=== PATIENT | male | born 1950 | race Caucasian/White ===

== ENCOUNTER 2018-03-01 19:18 | Inpatient (IN) | payer OTHER ==
[2018-03-01] MEDS ORDERED: Albuterol-Ipratrop 3 mg / 0.5 (3 ml) UD INH STA (20:22)
[2018-03-01 20:37] LABS: BASO # 0.1 K/uL (0.0-0.2); BASO % 0.3 % (0.0-2.0); LYMPH # 1.6 K/uL (1.0-4.3); LYMPH % 8.1 % (20.0-40.0); MEAN CELL VOLUME 80.8 fL (80.0-94.0); MEAN CORPUSCULAR HEMOGLOBIN 27.6 pg (27.0-31.0); MEAN CORPUSCULAR HGB CONC 34.2 g/dL (33.0-37.0); MEAN PLATELET VOLUME 8.3 fL (7.2-11.7); MONO # 1.1 K/uL (0.0-0.8); MONO % 5.9 % (0.0-10.0); NEUT # 16.7 K/uL (1.8-7.0); NEUT % 85.7 % (50.0-75.0); NRBC % 0.1 % (0.0-2.0); PLATELET COUNT 233 K/uL (130-400); RBC 3.96 Mil/uL (4.40-5.90); RED CELL DISTRIBUTION WIDTH 19.2 % (11.5-14.5); WHITE BLOOD COUNT 19.4 K/uL (4.8-10.8)
[2018-03-01 20:50] LABS: ALB/GLOB RATIO 1.3 (1.0-2.1); ALBUMIN 3.4 g/dL (3.5-5.0); ALT/SGPT 34 U/L (21-72); AST/SGOT 23 U/L (17-59); BLOOD UREA NITROGEN 20 mg/dL (9-20); CALCIUM 9.3 mg/dl (8.6-10.4); GFR NON-AFRICAN AMERICAN > 60
[2018-03-01] MEDS: Magnesium Sulfate 1 gm in D5W 1 GM/100 ML BAG IVPB SCH ×2 (20:53→21:19)
[2018-03-01] MEDS ORDERED: Albuterol-Ipratrop 3 mg / 0.5 (3 ml) UD ONE (20:54)
[2018-03-01] MEDS ORDERED: Magnesium Sulfate 1 gm in D5W 1 GM/100 ML BAG IVPB ONE ×2 (20:54→21:05)
[2018-03-01 20:58] LABS: B-TYPE NATRIURETIC PEPTIDE 1640 pg/mL (0-900)
[2018-03-01 22:03] LABS: ANISOCYTOSIS SLIGHT; LYMPHOCYTE 9 % (20-40); MICROCYTOSIS SLIGHT; MONOCYTE 6 % (0-10); NEUTROPHIL 85 % (50-75); PLATELET ESTIMATE NORMAL (NORMAL); POIKILOCYTOSIS SLIGHT; TOTAL CELLS COUNTED 100
[2018-03-01] MEDS ORDERED: Azithromycin 500 MG in Sodium Chloride 0.9% 250 ML IVPB STA (22:04)
--- NOTE | 2018-03-01 22:11 | C.PDOC ---
History Of Present Illness 67 year old male presents to the ER with a complaint of COPD symptoms and productive cough for the past several days associated with subjective fever. Patient states the sputum in greenish/brown in color. Patient was given 2 duonebs and solumedrol [employer] by EMS. Denies chest pain or recent travel. Chief Complaint (Nursing): Shortness Of Breath History Per: Patient History/Exam Limitations: no limitations Onset/Duration Of Symptoms: Days Current Symptoms Are (Timing): Still Present Initiating Event: Other (Not known) Current Respiratory Medications: See Home Med List Associated Symptoms: Fever (Subjective), Productive Cough, Other (COPD symptoms). denies: Chills, Chest Pain Recent travel outside of the [place]: No Past Medical History Reviewed: Historical Data, Nursing Documentation, Vital Signs Vital Signs: Last Vital Signs Temp 98.8 F 03/01/18 19:26 Pulse 100 H 03/01/18 19:26 Resp 18 03/01/18 19:26 BP 136/72 03/01/18 19:26 Pulse Ox 96 03/01/18 19:26 - Medical History PMH: Asthma, COPD Family History: States: Unknown Family Hx - Social History Hx Alcohol Use: No Hx Substance Use: No - Immunization History Hx Tetanus Toxoid Vaccination: No Hx Influenza Vaccination: No Hx Pneumococcal Vaccination: No Review Of Systems Constitutional: Positive for: Fever (Subjective) ENT: Negative for: Nose Discharge, Nose Congestion, Throat Pain Cardiovascular: Negative for: Chest Pain, Palpitations Respiratory: Positive for: Cough, Shortness of Breath, Sputum, Wheezing Gastrointestinal: Negative for: Nausea, Vomiting Genitourinary: Negative for: Dysuria, Hematuria Skin: Negative for: Rash Neurological: Negative for: Weakness, Numbness Physical Exam - Physical Exam Appears: Non-toxic, Other (Mild distress) Skin: Normal Color, Warm, Dry Head: Atraumatic, Normacephalic Eye(s): bilateral: Normal Inspection Nose: Normal Oral Mucosa: Moist Throat: Normal, No Erythema, No Exudate Neck: Normal, Supple Chest: Symmetrical, No Tenderness Cardiovascular: Rhythm Regular Respiratory: No Rales, Rhonchi (Left greater than right), Wheezing (Bilateral) Gastrointestinal/Abdominal: Soft, No Tenderness Back: No CVA Tenderness Extremity: Pedal Edema (Trace) Neurological/Psych: Oriented x3, Normal Speech ED Course And Treatment - Laboratory Results Result Diagrams: 03/01/18 20:32 03/01/18 20:32 O2 Sat by Pulse Oximetry: 96 (Room air) Pulse Ox Interpretation: Normal Progress Note: CXR and lab work ordered and reviewed. Patient admitted under hospitalist service. Disposition - Disposition Disposition: HOSPITALIZED Disposition Time: 22:00 Condition: FAIR - Clinical Impression Clinical Impression: Chr obstructive pulmonary disease w/ acute lower respiratory infxn - Scribe Statement The provider has reviewed the documentation as recorded by the Scribcarl Grace All medical record entries made by the Андрейibcarl were at my direction and personally dictated by me. I have reviewed the chart and agree that the record accurately reflects my personal performance of the history, physical exam, medical decision making, and the department course for this patient. I have also personally directed, reviewed, and agree with the discharge instructions and disposition.
[2018-03-01] MEDS ORDERED: Azithromycin 500mg/250ML NS 500 MG/250 ML BAG IVPB ONE (22:24)
--- NOTE | 2018-03-01 22:41 | CP.PCM.HP ---
<Belen Thakur - Last Filed: 03/01/18 23:46> History of Present Illness - History of Present Illness History of Present Illness: History and Physical - Hospitalist Service CC: Shortness of breath and chest pain x 1 day HPI: Patient is a 67 year old male with past medical history of COPD/asthma, HTN, PE s/p IVC filter, psoriasis, non-compliance presents to the Emergency Dept with shortness of breath and chest pain that started today. Patient was recently admitted to [facility] with the same complaint and has multiple admissions to the hospital. He was discharged from [facility] on 02/27/18. He was discharged with medrol dose mt and mucinex. He reports that he did not take these medications. Patient states that he walking outside when he started experiencing shortness of breath and left sided chest pain. Patient states that he did not have his albuterol inhaler with him so he was unable to use it. EMS was called and brought him to the hospital. He admits to having productive cough for the past two days. Sputum is brown/green in color. He also admits to having chills and sweats for the past two days as well. He denies fevers, nausea/vomiting, headaches, dizziness, palpitations, abdominal pain, urinary symptoms, changes in bowel habits. ED course: Magnesium sulfate 1mg IVPB x 2, Azithromycin 500mg IVPB, Rocephin 1gm IVPB, Duonebs Allergies: NKDA Medications: Albuterol inhaler Medical History: COPD, asthma, Impaired glucose tolerance, Chronic back pain Surgical History: Hernia repair 01/2018, IVC filter Family History: Father - ; Mother - arthritis, Sister - Diabetes Mellitus Social History: former smoker (30 pack years, quit 1 yr ago), former alcohol abuse (last drink in 02/2017), denies drug use; is homeless, sometimes sleeps in his friends house Present on Admission - Present on Admission Any Indicators Present on Admission: Yes Past Patient History - Infectious Disease Hx of Infectious Diseases: None - Past Social History Smoking Status: Former Smoker - PULMONARY Hx Asthma: Yes Hx Chronic Obstructive Pulmonary Disease (COPD): Yes - PSYCHIATRIC Hx Substance Use: No Meds Allergies/Adverse Reactions: Allergies Allergy/AdvReac Type Severity Reaction Status Date / Time No Known Allergies Allergy Unverified 03/01/18 20:21 Physical Exam - Constitutional Appears: Well, No Acute Distress - Head Exam Head Exam: ATRAUMATIC, NORMAL INSPECTION, NORMOCEPHALIC - Eye Exam Eye Exam: EOMI, Normal appearance Pupil Exam: NORMAL ACCOMODATION - ENT Exam ENT Exam: Mucous Membranes Moist - Respiratory Exam Respiratory Exam: Wheezes (Expiratory), NORMAL BREATHING PATTERN. absent: Clear to Auscultation Bilateral, Rales, Rhonchi - Cardiovascular Exam Cardiovascular Exam: REGULAR RHYTHM, +S1, +S2. absent: Systolic Murmur - GI/Abdominal Exam GI & Abdominal Exam: Normal Bowel Sounds, Soft. absent: Rebound, Rigid, Tenderness - Extremities Exam Extremities exam: Positive for: normal inspection, pedal pulses present. Negative for: calf tenderness Additional comments: +Venous stasis skin changes - Back Exam Back exam: NORMAL INSPECTION - Neurological Exam Neurological exam: Alert, Oriented x3 - Psychiatric Exam Psychiatric exam: Normal Affect, Normal Mood - Skin Skin Exam: Dry, Normal Color, Warm Additional comments: Areas of Hypopigmentation on both arms Results - Vital Signs Recent Vital Signs: Last Vital Signs Temp 98.8 F 03/01/18 19:26 Pulse 100 H 03/01/18 19:26 Resp 18 03/01/18 19:26 BP 136/72 03/01/18 19:26 Pulse Ox 96 03/01/18 22:13 - Labs Result Diagrams: 03/01/18 20:32 03/01/18 20:32 Labs: Laboratory Results - last 24 hr 03/01/18 03/01/18 03/01/18 20:32 20:32 20:43 WBC 19.4 H RBC 3.96 L Hgb 11.0 L Hct 32.0 L MCV 80.8 MCH 27.6 MCHC 34.2 RDW 19.2 H Plt Count 233 MPV 8.3 Neut % (Auto) 85.7 H Lymph % (Auto) 8.1 L Weld % (Auto) 5.9 Eos % (Auto) 0.0 Baso % (Auto) 0.3 Neut # (Auto) 16.7 H Lymph # (Auto) 1.6 Weld # (Auto) 1.1 H Eos # (Auto) 0.0 Baso # (Auto) 0.1 Neutrophils % (Manual) 85 H Lymphocytes % (Manual) 9 L Monocytes % (Manual) 6 Platelet Estimate Normal Poikilocytosis (manual Slight Anisocytosis (manual) Slight Microcytosis (manual) Slight Sodium 138 Potassium 4.2 Chloride 99 Carbon Dioxide 32 H Anion Gap 11 BUN 20 Creatinine 0.7 L Est GFR ( Amer) > 60 Est GFR (Non-Af Amer) > 60 Random Glucose 87 Calcium 9.3 Total Bilirubin 0.8 AST 23 ALT 34 Alkaline Phosphatase 62 Troponin I 0.0210 NT-Pro-B Natriuret Pep 1640 H Total Protein 6.0 L Albumin 3.4 L Globulin 2.6 Albumin/Globulin Ratio 1.3 Influenza Typ A,B (EIA) Negative for flu a/b Assessment & Plan - Assessment and Plan (Free Text) Assessment: A/P: Patient is a 67 year old male with past medical history of COPD, Asthma, Diabetes Mellitus, Type 2, Hypertension, PE s/p IVC filter, non-compliance who presents with shortness of breath and chest pain that started today. Patient was recently discharged from [facility] on 02/27 for the same complaint. Acute COPD exacerbation -Stable, afebrile -Will start Solumedrol 40mg Q12H IVP -Antibiotics: Doxycycline 100mg PO BID -Duonebs Q6H [place], Duonebs Q2H prn SOB -Added Pulmicort 0.5mg Q12H -Supplemental O2 as needed -EKG showed NSR, no ST-T wave changes, Troponin negative x 1 -CXR official read pending Leukocytosis, r/o infectious etiology -WBC was 19.4 on admission -WBC on discharge 02/27 was 12.8 -Patient states that he never took medrol dose mt that was prescribed -He is afebrile now, received Azithromycin and Rocephin in the ED -F/U CXR official read -Urine strep, Urine legionella, and Mycoplasma ordered, procalcitonin -Influenza was negative -Continue to monitor Diabetes Mellitus, Type 2 -Last a1c was 7.3 on 12/20/17 -Patient is supposed to be on Metformin, non-complaint -Will start on Low dose ISS ACHS and adjust as needed -Accuchecks ACHS -F/U hemoglobin A1C Hypertension -Continue Norvasc 5mg PO daily GI/DVT ppx: -Protonix 40mg IVP daily -Lovenox 40mg SC daily Plan discussed with Dr Sundeep Thakur DO PGY-2 <Hank Urbano P - Last Filed: 03/02/18 07:17> Results - Vital Signs Recent Vital Signs: Last Vital Signs Temp 97.9 F 03/02/18 00:30 Pulse 99 H 03/02/18 00:30 Resp 20 03/02/18 00:30 BP 157/78 H 03/02/18 00:30 Pulse Ox 96 03/02/18 05:57 - Labs Result Diagrams: 03/02/18 06:39 03/01/18 20:32 Labs: Laboratory Results - last 24 hr 03/01/18 03/01/18 03/01/18 20:32 20:32 20:43 WBC 19.4 H RBC 3.96 L Hgb 11.0 L Hct 32.0 L MCV 80.8 MCH 27.6 MCHC 34.2 RDW 19.2 H Plt Count 233 MPV 8.3 Neut % (Auto) 85.7 H Lymph % (Auto) 8.1 L Weld % (Auto) 5.9 Eos % (Auto) 0.0 Baso % (Auto) 0.3 Neut # (Auto) 16.7 H Lymph # (Auto) 1.6 Weld # (Auto) 1.1 H Eos # (Auto) 0.0 Baso # (Auto) 0.1 Neutrophils % (Manual) 85 H Lymphocytes % (Manual) 9 L Monocytes % (Manual) 6 Platelet Estimate Normal Poikilocytosis (manual Slight Anisocytosis (manual) Slight Microcytosis (manual) Slight Sodium 138 Potassium 4.2 Chloride 99 Carbon Dioxide 32 H Anion Gap 11 BUN 20 Creatinine 0.7 L Est GFR ( Amer) > 60 Est GFR (Non-Af Amer) > 60 POC Glucose (mg/dL) Random Glucose 87 Calcium 9.3 Total Bilirubin 0.8 AST 23 ALT 34 Alkaline Phosphatase 62 Troponin I 0.0210 NT-Pro-B Natriuret Pep 1640 H Total Protein 6.0 L Albumin 3.4 L Globulin 2.6 Albumin/Globulin Ratio 1.3 Influenza Typ A,B (EIA) Negative for flu a/b 03/02/18 03/02/18 06:39 07:02 WBC 16.6 H RBC 3.69 L Hgb 10.1 L Hct 30.3 L MCV 82.1 MCH 27.3 MCHC 33.2 RDW 19.1 H Plt Count 218 MPV 8.6 Neut % (Auto) 93.1 H Lymph % (Auto) 2.0 L Weld % (Auto) 4.5 Eos % (Auto) 0.0 Baso % (Auto) 0.4 Neut # (Auto) 15.4 H Lymph # (Auto) 0.3 L Weld # (Auto) 0.8 Eos # (Auto) 0.0 Baso # (Auto) 0.1 Neutrophils % (Manual) Lymphocytes % (Manual) Monocytes % (Manual) Platelet Estimate Poikilocytosis (manual Anisocytosis (manual) Microcytosis (manual) Sodium Potassium Chloride Carbon Dioxide Anion Gap BUN Creatinine Est GFR ( Amer) Est GFR (Non-Af Amer) POC Glucose (mg/dL) 488 H* Random Glucose Calcium Total Bilirubin AST ALT Alkaline Phosphatase Troponin I NT-Pro-B Natriuret Pep Total Protein Albumin Globulin Albumin/Globulin Ratio Influenza Typ A,B (EIA) Attending/Attestation - Attestation I have personally seen and examined this patient.: Yes I have fully participated in the care of the patient.: Yes I have reviewed all pertinent clinical information: Yes Notes (Text): 03/02/18 07:14 COPD exacerbation with acute bronchitis. Non compliance with medication Ex tobacco and alcohol use H/o glucose intolerance, pre dm Poor social support Plan IV solumedrol Inhaled pulmicort Duoneb Doxycycline Gi/DVt prophylaxis Accuchecks, hemoglobin a1c Counselled about compliance. See orders for detail.
[2018-03-01] MEDS ORDERED: Albuterol-Ipratrop 3 mg / 0.5 (3 ml) UD INH PRN (22:44)
[2018-03-02] MEDS: Albuterol-Ipratrop 3 mg / 0.5 (3 ml) UD INH SCH ×4 (01:00→20:20)
[2018-03-02 06:48] LABS: BASO # 0.1 K/uL (0.0-0.2); BASO % 0.4 % (0.0-2.0); HEMOGLOBIN 10.1 g/dL (12.0-18.0); LYMPH # 0.3 K/uL (1.0-4.3); MEAN CELL VOLUME 82.1 fL (80.0-94.0); MEAN CORPUSCULAR HEMOGLOBIN 27.3 pg (27.0-31.0); MEAN CORPUSCULAR HGB CONC 33.2 g/dL (33.0-37.0); MEAN PLATELET VOLUME 8.6 fL (7.2-11.7); MONO # 0.8 K/uL (0.0-0.8); MONO % 4.5 % (0.0-10.0); NEUT # 15.4 K/uL (1.8-7.0); NEUT % 93.1 % (50.0-75.0); PLATELET COUNT 218 K/uL (130-400); RBC 3.69 Mil/uL (4.40-5.90); RED CELL DISTRIBUTION WIDTH 19.1 % (11.5-14.5); WHITE BLOOD COUNT 16.6 K/uL (4.8-10.8)
--- NOTE | 2018-03-02 07:32 | RAD ---
Chest x-ray single frontal view HISTORY: Infiltrate. COMPARISON: None available. FINDINGS: Mild to moderate venous congestion. Patchy bibasilar airspace opacities. Small bilateral pleural effusions. Enlarged ectatic aorta with cardiomegaly. Right hilar prominence. Degenerative changes in the spine and shoulders. Biapical pleural thickening with upper lobe granulomatous changes. IMPRESSION: Mild to moderate venous congestion. Patchy bibasilar airspace opacities. Small bilateral pleural effusions. Enlarged ectatic aorta with cardiomegaly. Right hilar prominence.
[2018-03-02] MEDS: (Novolin R) Insulin Human Regular 100 units/ml vial SC SCH ×4 (07:44→21:36)
[2018-03-02] MEDS: Budesonide 0.5 mg/2 ml Inhal Susp UD INH SCH ×2 (07:52→20:20)
[2018-03-02 08:13] LABS: ALB/GLOB RATIO 1.3 (1.0-2.1); ALT/SGPT 30 U/L (21-72); AST/SGOT 16 U/L (17-59); BLOOD UREA NITROGEN 22 mg/dL (9-20); CALCIUM 8.7 mg/dl (8.6-10.4); GFR NON-AFRICAN AMERICAN > 60
[2018-03-02 08:21] LABS: ANISOCYTOSIS MODERATE; LYMPHOCYTE 2 % (20-40); MONOCYTE 4 % (0-10); NEUTROPHIL 94 % (50-75); PLATELET ESTIMATE NORMAL (NORMAL); TOTAL CELLS COUNTED 100
[2018-03-02 08:23] LABS: BURR CELLS SLIGHT; POIKILOCYTOSIS SLIGHT
[2018-03-02] MEDS: Enoxaparin 40 mg Syringe SC SCH (09:43)
[2018-03-02] MEDS ORDERED: MethylPREDNISolone 40 mg Vial IVP SCH (10:00)
--- NOTE | 2018-03-02 13:12 | CARD ---
APPROVED REPORT Date of service: 03/01/2018 EKG Measurement Heart [id number] <Conclusion> Normal sinus rhythm Normal ECG
[2018-03-02] MEDS: Azithromycin 500 MG in Sodium Chloride 0.9% 250 ML IVPB SCH (13:43)
[2018-03-02] MEDS: MethylPREDNISolone 40 mg Vial IVP SCH (17:36)
--- NOTE | 2018-03-02 19:05 | CP.PCM.PN ---
<Sintia Dawkins P - Last Filed: 03/02/18 18:54> Subjective - Date & Time of Evaluation Date of Evaluation: 03/02/18 Time of Evaluation: 08:00 - Subjective Subjective: PGY-[address] Floyd. Patient seen and examined at bedside. Patient continues to complain of SOB and cough with brown/green sputum. Also admits to diarrhea and one episode of vomiting this morning. Denies fever, chills, weakness, and lightheadedness. Objective - Vital Signs/Intake and Output Vital Signs (last 24 hours): Temp Pulse Resp BP Pulse Ox 98.8 F 90 20 139/78 99 03/02/18 15:30 03/02/18 15:30 03/02/18 15:30 03/02/18 15:30 03/02/18 15:30 Intake and Output: 03/02/18 03/02/18 06:59 18:59 Intake Total 200 750 Balance 200 750 - Medications Medications: Current Medications Albuterol/Ipratropium (Duoneb 3 Mg/0.5 Mg (3 Ml) Ud) 3 ml INH RQ6 [place] Last Admin: 03/02/18 13:19 Dose: 3 ml Albuterol/Ipratropium (Duoneb 3 Mg/0.5 Mg (3 Ml) Ud) 3 ml INH RQ2 PRN PRN Reason: Shortness of Breath Amlodipine Besylate (Norvasc) 5 mg PO DAILY [facility] Last Admin: 03/02/18 09:44 Dose: 5 mg Budesonide (Pulmicort Respules) 0.5 mg INH RQ12 [place] Last Admin: 03/02/18 07:52 Dose: 0.5 mg Enoxaparin Sodium (Lovenox) 40 mg SC DAILY [place] Last Admin: 03/02/18 09:43 Dose: 40 mg Ceftriaxone Sodium 1 gm/ (Sodium Chloride) 100 mls @ 100 mls/hr IVPB Q12H [place]; Protocol Last Admin: 03/02/18 13:42 Dose: 100 mls/hr Azithromycin 500 mg/ Sodium (Chloride) 250 mls @ 250 mls/hr IVPB DAILY [facility]; Protocol Last Admin: 03/02/18 13:43 Dose: 250 mls/hr Influenza Virus Vaccine (Fluzone Quad [id number]) 60 mcg IM .ONCE ONE Stop: 03/04/18 10:01 Insulin Human Regular (Novolin R) 0 unit SC ACHS [facility]; Protocol Last Admin: 03/02/18 16:30 Dose: 10 unit Methylprednisolone (Solu-Medrol) 40 mg IVP Q8H [facility] Last Admin: 03/02/18 17:36 Dose: 40 mg Pantoprazole Sodium (Protonix Inj) 40 mg IVP DAILY [facility] Last Admin: 03/02/18 09:43 Dose: 40 mg Pneumococcal Polyvalent Vaccine (Pneumovax 23 Vaccine) 0.5 ml IM .ONCE ONE Stop: 03/04/18 10:01 - Labs Labs: 03/02/18 06:39 03/02/18 06:39 - Head Exam Head Exam: ATRAUMATIC, NORMOCEPHALIC - Eye Exam Eye Exam: EOMI - ENT Exam ENT Exam: Mucous Membranes Moist - Neck Exam Neck Exam: Full ROM - Respiratory Exam Respiratory Exam: Rhonchi, Wheezes. absent: Clear to Ausculation Bilateral - Cardiovascular Exam Cardiovascular Exam: REGULAR RHYTHM, +S1, +S2 - GI/Abdominal Exam GI & Abdominal Exam: Soft, Normal Bowel Sounds. absent: Guarding, Tenderness, Rebound - Extremities Exam Extremities Exam: Full ROM. absent: Pedal Edema, Tenderness - Neurological Exam Neurological Exam: Awake, Normal Gait, Oriented x3 - Psychiatric Exam Psychiatric exam: Normal Affect, Normal Mood - Skin Skin Exam: Dry, Intact, Normal Color, Warm Assessment and Plan - Assessment and Plan (Free Text) Plan: Patient is a 67 year old male with past medical history of COPD, Asthma, Diabetes Mellitus, Type 2, Hypertension, PE s/p IVC filter, non-compliance who presents with shortness of breath and chest pain that started today. Patient was recently discharged from [facility] on 02/27 for the same complaint. Acute COPD exacerbation -Stable, afebrile -Will start Solumedrol 40mg Q8H IVP -Duonebs Q6H [place], Duonebs Q2H prn SOB -Pulmicort 0.5mg Q12H -Supplemental O2 as needed -EKG showed NSR, no ST-T wave changes, Troponin negative x 1 -CXR: Mild to moderate venous congestion, patchy bibasilar airspace opacities, small bilateral pleural effusions. Enlarged aorta with cardiomegaly (see full report). Pneumonia -WBC was 19.4 on admission, now 1.6 -Patient states that he never took medrol dose mt that was prescribed last admission -CXR: Mild to moderate venous congestion, patchy bibasilar airspace opacities, small bilateral pleural effusions. Enlarged aorta with cardiomegaly (see full report). -Azithromycin 500mg IV daily, Ceftriazone 1gm IV Q12H - Urine legionella: negative -procalcitonin: 0.05 -Influenza: negative - Mycoplasma ordered, Urine strep f/u Diabetes Mellitus, Type 2 -Last Hgb a1c was 7.3 on 12/20/17, now 8.8 -Patient is supposed to be on Metformin, non-complaint -RISS increased to high -Accuchecks ACHS Hypertension -Continue Norvasc 5mg PO daily GI/DVT ppx: -Protonix 40mg IVP daily -Lovenox 40mg SC daily <Jhon Floyd - Last Filed: 03/03/18 07:32> Objective - Vital Signs/Intake and Output Vital Signs (last 24 hours): Temp Pulse Resp BP Pulse Ox 97.7 F 82 20 127/68 98 03/03/18 00:00 03/03/18 00:00 03/03/18 00:00 03/03/18 00:00 03/03/18 04:15 Intake and Output: 03/03/18 03/03/18 06:59 18:59 Intake Total 350 Output Total 500 Balance -150 - Medications Medications: Current Medications Albuterol/Ipratropium (Duoneb 3 Mg/0.5 Mg (3 Ml) Ud) 3 ml INH RQ6 [facility] Last Admin: 03/03/18 07:14 Dose: 3 ml Albuterol/Ipratropium (Duoneb 3 Mg/0.5 Mg (3 Ml) Ud) 3 ml INH RQ2 PRN PRN Reason: Shortness of Breath Amlodipine Besylate (Norvasc) 5 mg PO DAILY [facility] Last Admin: 03/02/18 09:44 Dose: 5 mg Budesonide (Pulmicort Respules) 0.5 mg INH RQ12 [facility] Last Admin: 03/03/18 07:16 Dose: Not Given Enoxaparin Sodium (Lovenox) 40 mg SC DAILY [facility] Last Admin: 03/02/18 09:43 Dose: 40 mg Ceftriaxone Sodium 1 gm/ (Sodium Chloride) 100 mls @ 100 mls/hr IVPB Q12H [place]; Protocol Last Admin: 03/03/18 01:02 Dose: 100 mls/hr Azithromycin 500 mg/ Sodium (Chloride) 250 mls @ 250 mls/hr IVPB DAILY [facility]; Protocol Last Admin: 03/02/18 13:43 Dose: 250 mls/hr Influenza Virus Vaccine (Fluzone Quad [id number]) 60 mcg IM .ONCE ONE Stop: 03/04/18 10:01 Insulin Human Regular (Novolin R) 0 unit SC ACHS [place]; Protocol Last Admin: 03/02/18 21:36 Dose: Not Given Methylprednisolone (Solu-Medrol) 40 mg IVP Q8H [facility] Last Admin: 03/03/18 02:05 Dose: 40 mg Pantoprazole Sodium (Protonix Inj) 40 mg IVP DAILY [facility] Last Admin: 03/02/18 09:43 Dose: 40 mg Pneumococcal Polyvalent Vaccine (Pneumovax 23 Vaccine) 0.5 ml IM .ONCE ONE Stop: 03/04/18 10:01 - Labs Labs: 03/02/18 06:39 03/02/18 06:39 Attending/Attestation - Attestation I have personally seen and examined this patient.: Yes I have fully participated in the care of the patient.: Yes I have reviewed all pertinent clinical information, including history, physical exam and plan: Yes Notes (Text): Medical Attending: Patient was seen and examined by me. Reviewed the above note by the resident and agree with the above This is a homeless 67 year old male who is well known to the hospitalist service here at [facility] Patient has the tendency to go from one hospital to the next. He claims he is living at his friend's house. He is having wheezing and coughing again and phlegm production. Currently patient is on doxycyline and we changed this over to IV abx Also continue with the IV solumedrol Jhon Floyd
[2018-03-03] MEDS: MethylPREDNISolone 40 mg Vial IVP SCH ×3 (02:05→17:13)
[2018-03-03] MEDS: Albuterol-Ipratrop 3 mg / 0.5 (3 ml) UD INH SCH ×4 (02:10→21:05)
[2018-03-03] MEDS: Budesonide 0.5 mg/2 ml Inhal Susp UD INH SCH (07:16)
[2018-03-03 07:37] LABS: BASO % 0.2 % (0.0-2.0); HEMOGLOBIN 10.8 g/dL (12.0-18.0); LYMPH # 0.4 K/uL (1.0-4.3); MEAN CELL VOLUME 82.5 fL (80.0-94.0); MEAN CORPUSCULAR HEMOGLOBIN 27.4 pg (27.0-31.0); MEAN CORPUSCULAR HGB CONC 33.2 g/dL (33.0-37.0); MEAN PLATELET VOLUME 8.4 fL (7.2-11.7); MONO # 0.4 K/uL (0.0-0.8); MONO % 2.9 % (0.0-10.0); NEUT # 13.8 K/uL (1.8-7.0); NEUT % 93.9 % (50.0-75.0); NRBC % 0.1 % (0.0-2.0); PLATELET COUNT 239 K/uL (130-400); RBC 3.92 Mil/uL (4.40-5.90); RED CELL DISTRIBUTION WIDTH 19.7 % (11.5-14.5); WHITE BLOOD COUNT 14.7 K/uL (4.8-10.8)
[2018-03-03] MEDS: (Novolin R) Insulin Human Regular 100 units/ml vial SC SCH ×4 (08:20→21:51)
[2018-03-03 08:47] LABS: ANISOCYTOSIS SLIGHT; BURR CELLS SLIGHT; HYPOCHROMIC SLIGHT; LYMPHOCYTE 3 % (20-40); MONOCYTE 3 % (0-10); NEUTROPHIL 94 % (50-75); OVALOCYTES SLIGHT; PLATELET ESTIMATE NORMAL (NORMAL); POIKILOCYTOSIS SLIGHT; TOTAL CELLS COUNTED 100
[2018-03-03 08:48] LABS: TARGET CELLS SLIGHT
[2018-03-03 09:27] LABS: ALB/GLOB RATIO 1.3 (1.0-2.1); ALBUMIN 3.2 g/dL (3.5-5.0); ALT/SGPT 29 U/L (21-72); AST/SGOT 13 U/L (17-59); BLOOD UREA NITROGEN 25 mg/dL (9-20); GFR NON-AFRICAN AMERICAN > 60
[2018-03-03] MEDS: Enoxaparin 40 mg Syringe SC SCH (11:03)
[2018-03-03] MEDS: Azithromycin 500 MG in Sodium Chloride 0.9% 250 ML IVPB SCH (11:07)
[2018-03-03 16:42] VITALS: RESP 20
[2018-03-04 00:35] VITALS: O2SAT 96
--- NOTE | 2018-03-04 01:31 | CP.PCM.PN ---
<Sintia Dawkins P - Last Filed: 03/04/18 01:40> Subjective - Date & Time of Evaluation Date of Evaluation: 03/03/18 Time of Evaluation: 08:00 - Subjective Subjective: PGY-[address] Floyd. Patient seen and examined at bedside. Patient states shortness of breath has improved, but has persistent cough with green/brown sputum. Nausea, vomiting and diarrhea have resolved. Denies fever, chills, and chest pain. Objective - Vital Signs/Intake and Output Vital Signs (last 24 hours): Temp Pulse Resp BP Pulse Ox 98 F 68 20 145/72 96 03/04/18 00:00 03/04/18 00:00 03/04/18 00:00 03/04/18 00:00 03/04/18 00:00 Intake and Output: 03/03/18 03/04/18 18:59 06:59 Intake Total 450 Balance 450 - Medications Medications: Current Medications Albuterol/Ipratropium (Duoneb 3 Mg/0.5 Mg (3 Ml) Ud) 3 ml INH RQ6 [place] Last Admin: 03/03/18 21:05 Dose: 3 ml Albuterol/Ipratropium (Duoneb 3 Mg/0.5 Mg (3 Ml) Ud) 3 ml INH RQ2 PRN PRN Reason: Shortness of Breath Amlodipine Besylate (Norvasc) 5 mg PO DAILY [place] Last Admin: 03/03/18 11:09 Dose: 5 mg Budesonide (Pulmicort Respules) 0.5 mg INH RQ12 [place] Last Admin: 03/03/18 07:16 Dose: Not Given Enoxaparin Sodium (Lovenox) 40 mg SC DAILY [place] Last Admin: 03/03/18 11:03 Dose: 40 mg Ceftriaxone Sodium 1 gm/ (Sodium Chloride) 100 mls @ 100 mls/hr IVPB Q12H [place]; Protocol Last Admin: 03/04/18 00:58 Dose: 100 mls/hr Azithromycin 500 mg/ Sodium (Chloride) 250 mls @ 250 mls/hr IVPB DAILY [place]; Protocol Last Admin: 03/03/18 11:07 Dose: 250 mls/hr Influenza Virus Vaccine (Fluzone Quad [id number]) 60 mcg IM .ONCE ONE Stop: 03/04/18 10:01 Insulin Human Regular (Novolin R) 0 unit SC ACHS [facility]; Protocol Last Admin: 03/03/18 21:51 Dose: 3 unit Methylprednisolone (Solu-Medrol) 40 mg IVP Q8H [facility] Last Admin: 03/03/18 17:13 Dose: 40 mg Pantoprazole Sodium (Protonix Inj) 40 mg IVP DAILY [facility] Last Admin: 03/03/18 10:53 Dose: 40 mg Pneumococcal Polyvalent Vaccine (Pneumovax 23 Vaccine) 0.5 ml IM .ONCE ONE Stop: 03/04/18 10:01 - Labs Labs: 03/03/18 07:28 03/03/18 07:28 - Constitutional Appears: No Acute Distress - Head Exam Head Exam: ATRAUMATIC, NORMOCEPHALIC - Eye Exam Eye Exam: EOMI - ENT Exam ENT Exam: Mucous Membranes Moist - Neck Exam Neck Exam: Full ROM - Respiratory Exam Respiratory Exam: Rhonchi, Wheezes. absent: Rales - Cardiovascular Exam Cardiovascular Exam: REGULAR RHYTHM, +S1, +S2 - GI/Abdominal Exam GI & Abdominal Exam: Soft, Normal Bowel Sounds. absent: Guarding, Tenderness, Rebound - Neurological Exam Neurological Exam: Alert, Awake, Normal Gait, Oriented x3 - Psychiatric Exam Psychiatric exam: Normal Affect, Normal Mood - Skin Skin Exam: Dry, Normal Color, Warm Assessment and Plan - Assessment and Plan (Free Text) Plan: Patient is a 67 year old male with past medical history of COPD, Asthma, Diabetes Mellitus, Type 2, Hypertension, PE s/p IVC filter, non-compliance who presents with shortness of breath and chest pain that started today. Patient was recently discharged from [facility] on 02/27 for the same complaint. Acute COPD exacerbation -Stable, afebrile - Solumedrol 40mg Q8H IVP -Duonebs Q6H [place], Duonebs Q2H prn SOB -Pulmicort 0.5mg Q12H -Supplemental O2 as needed -EKG showed NSR, no ST-T wave changes, Troponin negative x 1 -CXR: Mild to moderate venous congestion, patchy bibasilar airspace opacities, small bilateral pleural effusions. Enlarged aorta with cardiomegaly (see full report). Pneumonia -WBC was 19.4 on admission, now 14.6 -CXR: Mild to moderate venous congestion, patchy bibasilar airspace opacities, small bilateral pleural effusions. Enlarged aorta with cardiomegaly (see full report). -Azithromycin 500mg IV daily, Ceftriazone 1gm IV Q12H - Urine legionella: negative -procalcitonin: 0.05 -Influenza: negative - Mycoplasma ordered, Urine strep f/u Diabetes Mellitus, Type 2 -Last Hgb a1c was 7.3 on 12/20/17, now 8.8 -Patient is supposed to be on Metformin, non-complaint -RISS increased to high -Accuchecks ACHS Hypertension -Continue Norvasc 5mg PO daily GI/DVT ppx: -Protonix 40mg IVP daily -Lovenox 40mg SC daily <Jhon Floyd H - Last Filed: 03/04/18 07:20> Objective - Vital Signs/Intake and Output Vital Signs (last 24 hours): Temp Pulse Resp BP Pulse Ox 98 F 68 20 145/72 96 03/04/18 00:00 03/04/18 00:00 03/04/18 00:00 03/04/18 00:00 03/04/18 00:00 Intake and Output: 03/04/18 03/04/18 06:59 18:59 Intake Total 300 Balance 300 - Medications Medications: Current Medications Albuterol/Ipratropium (Duoneb 3 Mg/0.5 Mg (3 Ml) Ud) 3 ml INH RQ6 [place] Last Admin: 03/04/18 02:30 Dose: Not Given Albuterol/Ipratropium (Duoneb 3 Mg/0.5 Mg (3 Ml) Ud) 3 ml INH RQ2 PRN PRN Reason: Shortness of Breath Amlodipine Besylate (Norvasc) 5 mg PO DAILY [facility] Last Admin: 03/03/18 11:09 Dose: 5 mg Budesonide (Pulmicort Respules) 0.5 mg INH RQ12 [place] Last Admin: 03/03/18 07:16 Dose: Not Given Enoxaparin Sodium (Lovenox) 40 mg SC DAILY [facility] Last Admin: 03/03/18 11:03 Dose: 40 mg Ceftriaxone Sodium 1 gm/ (Sodium Chloride) 100 mls @ 100 mls/hr IVPB Q12H [facility]; Protocol Last Admin: 03/04/18 00:58 Dose: 100 mls/hr Azithromycin 500 mg/ Sodium (Chloride) 250 mls @ 250 mls/hr IVPB DAILY [place]; Protocol Last Admin: 03/03/18 11:07 Dose: 250 mls/hr Influenza Virus Vaccine (Fluzone Quad [id number]) 60 mcg IM .ONCE ONE Stop: 03/04/18 10:01 Insulin Human Regular (Novolin R) 0 unit SC ACHS [place]; Protocol Last Admin: 03/03/18 21:51 Dose: 3 unit Methylprednisolone (Solu-Medrol) 40 mg IVP Q8H [place] Last Admin: 03/04/18 02:11 Dose: 40 mg Pantoprazole Sodium (Protonix Inj) 40 mg IVP DAILY [place] Last Admin: 03/03/18 10:53 Dose: 40 mg Pneumococcal Polyvalent Vaccine (Pneumovax 23 Vaccine) 0.5 ml IM .ONCE ONE Stop: 03/04/18 10:01 - Labs Labs: 03/03/18 07:28 03/03/18 07:28 Attending/Attestation - Attestation I have personally seen and examined this patient.: Yes I have fully participated in the care of the patient.: Yes I have reviewed all pertinent clinical information, including history, physical exam and plan: Yes Notes (Text): 03/04/18 07:20 Medical attending: Patient was seen and examined by me, I reviewed the above note by medical engineer and agree with the above note Patient was still complaining of cough and wheezing. He reported heavy sputum production as well, will try to get a sputum culture He remains on IV abx, IV solumedrol as well Thank you very much, Jhon Floyd
[2018-03-04] MEDS: MethylPREDNISolone 40 mg Vial IVP SCH ×2 (02:11→10:05)
[2018-03-04] MEDS: Albuterol-Ipratrop 3 mg / 0.5 (3 ml) UD INH SCH ×3 (02:30→13:54)
[2018-03-04 06:49] LABS: BASO # 0.1 K/uL (0.0-0.2); BASO % 0.4 % (0.0-2.0); HEMOGLOBIN 10.3 g/dL (12.0-18.0); LYMPH # 0.6 K/uL (1.0-4.3); LYMPH % 4.1 % (20.0-40.0); MEAN CORPUSCULAR HEMOGLOBIN 26.9 pg (27.0-31.0); MEAN CORPUSCULAR HGB CONC 32.8 g/dL (33.0-37.0); MEAN PLATELET VOLUME 8.3 fL (7.2-11.7); MONO # 0.5 K/uL (0.0-0.8); MONO % 3.3 % (0.0-10.0); NEUT # 12.9 K/uL (1.8-7.0); NEUT % 92.2 % (50.0-75.0); NRBC % 0.1 % (0.0-2.0); PLATELET COUNT 233 K/uL (130-400); RBC 3.84 Mil/uL (4.40-5.90); RED CELL DISTRIBUTION WIDTH 18.8 % (11.5-14.5)
[2018-03-04 07:23] VITALS: BP 156/81; PULSE 75; TEMP 98.1
[2018-03-04 07:44] LABS: ALB/GLOB RATIO 1.3 (1.0-2.1); ALT/SGPT 31 U/L (21-72); AST/SGOT 12 U/L (17-59); BLOOD UREA NITROGEN 27 mg/dL (9-20); GFR NON-AFRICAN AMERICAN > 60
[2018-03-04] MEDS: Budesonide 0.5 mg/2 ml Inhal Susp UD INH SCH (08:23)
[2018-03-04] MEDS: (Novolin R) Insulin Human Regular 100 units/ml vial SC SCH ×2 (08:33→12:04)
[2018-03-04 09:51] LABS: BANDS 1 % (0-2); LYMPHOCYTE 5 % (20-40); MONOCYTE 3 % (0-10); MYELOCYTE 1 % (0-0); NEUTROPHIL 90 % (50-75); NUCLEATED RED BLOOD CELL 1 % (0-0); PLATELET ESTIMATE NORMAL (NORMAL); TOTAL CELLS COUNTED 100
[2018-03-04 09:52] LABS: ANISOCYTOSIS SLIGHT; BURR CELLS SLIGHT; LARGE PLATELETS PRESENT; OVALOCYTES SLIGHT; POIKILOCYTOSIS SLIGHT
[2018-03-04] MEDS ORDERED: Influenza Vaccine 60 MCG/0.5 ML SYR (3 yr & up) IM ONE (10:00)
[2018-03-04] MEDS ORDERED: Pneumococcal 23-Valent Vaccine IM ONE (10:00)
[2018-03-04] MEDS: Enoxaparin 40 mg Syringe SC SCH (10:06)
[2018-03-04] MEDS: Azithromycin 500 MG in Sodium Chloride 0.9% 250 ML IVPB SCH (10:06)
--- NOTE | 2018-03-04 22:00 | CP.PCM.DIS ---
<Robert Steen - Last Filed: 03/04/18 21:57> Provider - Provider Date of Admission: 03/03/18 14:03 Attending physician: Hank Urbano MD Primary care physician: None Time Spent in preparation of Discharge (in minutes): 45 Diagnosis - Discharge Diagnosis (1) Acute exacerbation of chronic obstructive pulmonary disease Status: Acute (2) Bronchitis Status: Acute (3) Dyspnea Status: Acute (4) Homeless Status: Chronic (5) Hypertension Status: Chronic (6) Psoriasis Status: Chronic Hospital Course - Lab Results Lab Results: Micro Results 03/04/18 07:18 Sputum Gram Stain - Final 03/01/18 07:00 Blood Blood Culture - Preliminary NO GROWTH AFTER 48 HOURS 03/01/18 07:00 Blood Blood Culture - Preliminary NO GROWTH AFTER 48 HOURS Most Recent Lab Values WBC 14.0 K/uL (4.8-10.8) H 03/04/18 06:31 RBC 3.84 Mil/uL (4.40-5.90) L 03/04/18 06:31 Hgb 10.3 g/dL (12.0-18.0) L 03/04/18 06:31 Hct 31.5 % (35.0-51.0) L 03/04/18 06:31 MCV 82.0 fL (80.0-94.0) 03/04/18 06:31 MCH 26.9 pg (27.0-31.0) L 03/04/18 06:31 MCHC 32.8 g/dL (33.0-37.0) L 03/04/18 06:31 RDW 18.8 % (11.5-14.5) H 03/04/18 06:31 Plt Count 233 K/uL (130-400) 03/04/18 06:31 MPV 8.3 fL (7.2-11.7) 03/04/18 06:31 Neut % (Auto) 92.2 % (50.0-75.0) H 03/04/18 06:31 Lymph % (Auto) 4.1 % (20.0-40.0) L 03/04/18 06:31 [place] % (Auto) 3.3 % (0.0-10.0) 03/04/18 06:31 Eos % (Auto) 0.0 % (0.0-4.0) 03/04/18 06:31 Baso % (Auto) 0.4 % (0.0-2.0) 03/04/18 06:31 Neut # (Auto) 12.9 K/uL (1.8-7.0) H 03/04/18 06:31 Lymph # (Auto) 0.6 K/uL (1.0-4.3) L 03/04/18 06:31 [place] # (Auto) 0.5 K/uL (0.0-0.8) 03/04/18 06:31 Eos # (Auto) 0.0 K/uL (0.0-0.7) 03/04/18 06:31 Baso # (Auto) 0.1 K/uL (0.0-0.2) 03/04/18 06:31 Neutrophils % (Manual) 90 % (50-75) H 03/04/18 06:31 Band Neutrophils % 1 % (0-2) 03/04/18 06:31 Lymphocytes % (Manual) 5 % (20-40) L 03/04/18 06:31 Monocytes % (Manual) 3 % (0-10) 03/04/18 06:31 Myelocytes % 1 % (0-0) H 03/04/18 06:31 Nucleated RBC % 1 % (0-0) H 03/04/18 06:31 Platelet Estimate Normal (NORMAL) 03/04/18 06:31 Large Platelets Present 03/04/18 06:31 Hypochromasia (manual) Slight 03/03/18 07:28 Poikilocytosis (manual Slight 03/04/18 06:31 Anisocytosis (manual) Slight 03/04/18 06:31 Microcytosis (manual) Slight 03/01/18 20:32 Target Cells Slight 03/03/18 07:28 Ovalocytes Slight 03/04/18 06:31 [place] Cells Slight 03/04/18 06:31 Sodium 134 mmol/L (132-148) 03/04/18 06:31 Potassium 4.2 mmol/L (3.6-5.2) 03/04/18 06:31 Chloride 97 mmol/L (98-107) L 03/04/18 06:31 Carbon Dioxide 28 mmol/L (22-30) 03/04/18 06:31 Anion Gap 13 (10-20) 03/04/18 06:31 BUN 27 mg/dL (9-20) H 03/04/18 06:31 Creatinine 0.7 mg/dL (0.8-1.5) L 03/04/18 06:31 Est GFR ( Amer) > 60 10 06:31 Est GFR (Non-Af Amer) > 60 03/04/18 06:31 POC Glucose (mg/dL) 268 mg/dL (65-110) H 03/04/18 11:08 Random Glucose 272 mg/dL (75-110) H 03/04/18 06:31 Hemoglobin A1c 8.8 % (4.2-6.5) H 03/02/18 06:39 Calcium 9.0 mg/dl (8.6-10.4) 03/04/18 06:31 Phosphorus 3.3 mg/dL (2.5-4.5) 03/04/18 06:31 Magnesium 1.6 mg/dL (1.6-2.3) 03/04/18 06:31 Total Bilirubin 0.4 mg/dL (0.2-1.3) 03/04/18 06:31 AST 12 U/L (17-59) L 03/04/18 06:31 ALT 31 U/L (21-72) 03/04/18 06:31 Alkaline Phosphatase 54 U/L (38-126) 03/04/18 06:31 Troponin I 0.0210 ng/mL (0.00-0.120) 03/01/18 20:32 NT-Pro-B Natriuret Pep 1640 pg/mL (0-900) H 03/01/18 20:32 Total Protein 5.4 g/dL (6.3-8.3) L 03/04/18 06:31 Albumin 3.0 g/dL (3.5-5.0) L 03/04/18 06:31 Globulin 2.4 gm/dL (2.2-3.9) 03/04/18 06:31 Albumin/Globulin Ratio 1.3 (1.0-2.1) 03/04/18 06:31 Procalcitonin 0.05 NG/ML (0.19-0.49) L 03/02/18 06:39 Influenza Typ A,B (EIA) Negative for flu a/b (NEGATIVE) 03/01/18 20:43 Ur L.pneumophila Ag Negative (NEGATIVE) 03/02/18 06:10 Mycoplasma pneumon IgG <=0.90 (<=0.90) 03/02/18 06:39 Mycoplasma pneumon IgM 484 U/mL (<770) 03/02/18 06:39 - Hospital Course Hospital Course: Medicine Discharge Summary for Hospitalist Service 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 Patient was recently admitted to [facility] with the same complaint and has multiple admissions to the hospital. He was discharged from [facility] on 02/27/18. He was discharged with medrol dose mt and mucinex. He reported that he did not take these medications. Patient stated that he walking outside when he started experiencing shortness of breath and left sided chest pain. Patient stated that he did not have his albuterol inhaler with him so he was unable to use it. EMS was called and brought him to the hospital. He admitted to having productive cough for the past two days. Sputum is brown/green in color. He also admitted to having chills and sweats for the past two days as well. He denied fevers, nausea/vomiting, headaches, dizziness, palpitations, abdominal pain, urinary symptoms, changes in bowel habits. Pt was admitted for acute COPD exacerbation and treatment of pneumonia. Pt was given Solumedrol, Duonebs, and Pulmicort inpatient, supplemental O2 prn. EKG was unremarkable, JOHNNIE neg x1. CXR: Mild to moderate venous congestion, patchy bibasilar airspace opacities, small bilateral pleural effusions. Enlarged aorta with cardiomegaly (see full report). Pt had leukocytosis on admission but trended down, was still elevated likely 2/2 steroid administration inpatient. Pt was placed on Ceftriaxone and Azithromycin for treatment of pneumonia/COPD exacerbation. Pt had A1c of 8.8, was non-compliant with taking Metformin, Was placed on high insulin sliding scale to control sugars inpatient. Pt was medically managed with Norvasc for HTN. Pt was discharged on 03/04/18 in stable condition on Prednisone and Azithromycin to be completed for the next 5 days. Was instructed to follow-up with [facility], to establish care with a PCP. Discharge Exam - Head Exam Head Exam: ATRAUMATIC, NORMOCEPHALIC - Eye Exam Eye Exam: EOMI, Normal appearance, PERRL - ENT Exam ENT Exam: Mucous Membranes Moist - Respiratory Exam Respiratory Exam: Clear to PA & Lateral, NORMAL BREATHING PATTERN, UNREMARKABLE Additional comments: Pt observed ambulating to and from nurses station without any associated shortness of breath, mild wheezes heard in all lung [place]. - Cardiovascular Exam Cardiovascular Exam: REGULAR RHYTHM, +S1, +S2. absent: Gallop, Rubs, Systolic Murmur - GI/Abdominal Exam GI & Abdominal Exam: Normal Bowel Sounds, Soft, Unremarkable. absent: Distended, Firm, Guarding, Rebound, Rigid, Tenderness - Extremities Exam Extremities exam: full ROM, normal capillary refill, normal inspection, pedal pulses present - Neurological Exam Neurological exam: Alert, CN II-XII Intact, Oriented x3, Reflexes Normal - Skin Skin Exam: Dry, Intact, Normal Color, Warm Discharge Plan - Discharge Medications Prescriptions: RX: Azithromycin 500 mg PO BID #10 tablet RX: Prednisone 10 mg PO BID #10 - Follow Up Plan Condition: FAIR Disposition: HOME/ ROUTINE Instructions: Heart Failure, Adult (DC), Exacerbation of COPD (DC) Additional Instructions: Patient medically stable for discharge to home. Please follow-up with Dr. Paul ([facility]) within 1 week of hospital discharge. Please resume home medications as prescribed. Please take antibiotic and steroid as prescribed. Should symptoms recur or worsen, please call your primary care physician or report to your nearest emergency department. Referrals: Karrie Paul MD [Staff Provider] - <Jhon Floyd H - Last Filed: 03/05/18 12:10> Provider - Provider Date of Admission: 03/03/18 14:03 Attending physician: Hank Urbano MD Hospital Course - Lab Results Lab Results: Micro Results 03/01/18 07:00 Blood Blood Culture - Preliminary NO GROWTH AFTER 3 DAYS 03/01/18 07:00 Blood Blood Culture - Preliminary NO GROWTH AFTER 3 DAYS 03/04/18 07:18 Sputum Gram Stain - Final Most Recent Lab Values WBC 14.0 K/uL (4.8-10.8) H 03/04/18 06:31 RBC 3.84 Mil/uL (4.40-5.90) L 03/04/18 06:31 Hgb 10.3 g/dL (12.0-18.0) L 03/04/18 06:31 Hct 31.5 % (35.0-51.0) L 03/04/18 06: MCV 82.0 fL (80.0-94.0) 03/04/18 06: MCH 26.9 pg (27.0-31.0) L 03/04/18 06: MCHC 32.8 g/dL (33.0-37.0) L 03/04/18 06: RDW 18.8 % (11.5-14.5) H 03/04/18 06:31 Plt Count 233 K/uL (130-400) 03/04/18 06: MPV 8.3 fL (7.2-11.7) 03/04/18 06: Neut % (Auto) 92.2 % (50.0-75.0) H 03/04/18 06: Lymph % (Auto) 4.1 % (20.0-40.0) L 03/04/18 06: [place] % (Auto) 3.3 % (0.0-10.0) 03/04/18 06:31 Eos % (Auto) 0.0 % (0.0-4.0) 03/04/18 06: Baso % (Auto) 0.4 % (0.0-2.0) 03/04/18 06: Neut # (Auto) 12.9 K/uL (1.8-7.0) H 03/04/18 06:31 Lymph # (Auto) 0.6 K/uL (1.0-4.3) L 03/04/18 06:31 [place] # (Auto) 0.5 K/uL (0.0-0.8) 03/04/18 06: Eos # (Auto) 0.0 K/uL (0.0-0.7) 03/04/18 06: Baso # (Auto) 0.1 K/uL (0.0-0.2) 03/04/18 06:31 Neutrophils % (Manual) 90 % (50-75) H 03/04/18 06:31 Band Neutrophils % 1 % (0-2) 03/04/18 06:31 Lymphocytes % (Manual) 5 % (20-40) L 03/04/18 06:31 Monocytes % (Manual) 3 % (0-10) 03/04/18 06:31 Myelocytes % 1 % (0-0) H 03/04/18 06:31 Nucleated RBC % 1 % (0-0) H 03/04/18 06:31 Platelet Estimate Normal (NORMAL) 03/04/18 06:31 Large Platelets Present 03/04/18 06:31 Hypochromasia (manual) Slight 03/03/18 07:28 Poikilocytosis (manual Slight 03/04/18 06:31 Anisocytosis (manual) Slight 03/04/18 06:31 Microcytosis (manual) Slight 03/01/18 20:32 Target Cells Slight 03/03/18 07:28 Ovalocytes Slight 03/04/18 06:31 [place] Cells Slight 03/04/18 06:31 Sodium 134 mmol/L (132-148) 03/04/18 06:31 Potassium 4.2 mmol/L (3.6-5.2) 03/04/18 06:31 Chloride 97 mmol/L (98-107) L 03/04/18 06:31 Carbon Dioxide 28 mmol/L (22-30) 03/04/18 06:31 Anion Gap 13 (10-20) 03/04/18 06:31 BUN 27 mg/dL (9-20) H 03/04/18 06:31 Creatinine 0.7 mg/dL (0.8-1.5) L 03/04/18 06:31 Est GFR ( Amer) > 60 03/04/18 06:31 Est GFR (Non-Af Amer) > 60 03/04/18 06:31 POC Glucose (mg/dL) 268 mg/dL (65-110) H 03/04/18 11:08 Random Glucose 272 mg/dL (75-110) H 03/04/18 06:31 Hemoglobin A1c 8.8 % (4.2-6.5) H 03/02/18 06:39 Calcium 9.0 mg/dl (8.6-10.4) 03/04/18 06:31 Phosphorus 3.3 mg/dL (2.5-4.5) 03/04/18 06:31 Magnesium 1.6 mg/dL (1.6-2.3) 03/04/18 06:31 Total Bilirubin 0.4 mg/dL (0.2-1.3) 03/04/18 06:31 AST 12 U/L (17-59) L 03/04/18 06:31 ALT 31 U/L (21-72) 03/04/18 06:31 Alkaline Phosphatase 54 U/L (38-126) 03/04/18 06:31 Troponin I 0.0210 ng/mL (0.00-0.120) 03/01/18 20:32 NT-Pro-B Natriuret Pep 1640 pg/mL (0-900) H 03/01/18 20:32 Total Protein 5.4 g/dL (6.3-8.3) L 03/04/18 06:31 Albumin 3.0 g/dL (3.5-5.0) L 03/04/18 06:31 Globulin 2.4 gm/dL (2.2-3.9) 03/04/18 06:31 Albumin/Globulin Ratio 1.3 (1.0-2.1) 03/04/18 06:31 Procalcitonin 0.05 NG/ML (0.19-0.49) L 03/02/18 06:39 Influenza Typ A,B (EIA) Negative for flu a/b (NEGATIVE) 03/01/18 20:43 Ur L.pneumophila Ag Negative (NEGATIVE) 03/02/18 06:10 Mycoplasma pneumon IgG <=0.90 (<=0.90) 03/02/18 06:39 Mycoplasma pneumon IgM 484 U/mL (<770) 03/02/18 06:39 Ur Strep pneumoniae Ag Not detected (Not Detected) 03/03/18 04:33 Attending/Attestation - Attestation I have personally seen and examined this patient.: Yes I have fully participated in the care of the patient.: Yes I have reviewed all pertinent clinical information, including history, physical exam and plan: Yes Notes (Text): 03/05/18 12:08 This is a 67 year old man who came with coughing, wheezing. He is a homeless man . When asked when the last time he was in a hospital due to his breathing he reports it was several months ago here at [facility]. Records show he was just at [facility] and then discharged and he then came to [facility] claiming he'd never had been anywhere else prior. His blood cultures are negative 48hrs and were negative also at [place]. Flu study negative as well. WBC stable, afebrile. It is questionable if he takes his medications for his COPD. We did write a RX for prednisone as well as azithomryin. He says to us he alraedy has an albuterol inhaler with him. Jhon Floyd
== END 2018-03-04 17:13 | disposition home or self-care (01) | DRG 140 ==
LOC: C.ER 19:18 → C.9E 22:13 → C.3T 22:56 → OBSVTOIN 03-03 14:03
PROVIDERS: ADMIT Internal Medicine; ATTEND Internal Medicine
DX: J44.1 Chronic obstructive pulmonary disease with (acute) exacerbation (principal); J18.9 Pneumonia, unspecified organism; E11.9 Type 2 diabetes mellitus without complications; J44.0 Chronic obstructive pulmonary disease with (acute) lower respiratory infection; I10 Essential (primary) hypertension; J20.9 Acute bronchitis, unspecified; Z59.0 Homelessness; Z86.711 Personal history of pulmonary embolism; L40.9 Psoriasis, unspecified; I51.7 Cardiomegaly; Z87.891 Personal history of nicotine dependence; Z91.14 Patient's other noncompliance with medication regimen; M54.9 Dorsalgia, unspecified; G89.29 Other chronic pain

== ENCOUNTER 2018-09-10 19:19 | Inpatient (IN) | payer MEDICAID, OTHER ==
[2018-09-10 19:19] VITALS: BMI 33.1
[2018-09-10] MEDS ORDERED: Aspirin 325 mg EC Tablets PO STA (19:33)
--- NOTE | 2018-09-10 19:33 | C.PDOC ---
History Of Present Illness 68 y/o male comes in complaining of SOB and chest pain while walking up a hill. Patient denies fever, chills, nausea, or vomiting. Patient is speaking in full word sentences. Patient was seen 10 days ago for similar complaints in [facility]. Time Seen by Provider: 09/10/18 19:33 Chief Complaint (Nursing): Chest Pain History Per: Patient History/Exam Limitations: no limitations Onset/Duration Of Symptoms: Hrs Current Symptoms Are (Timing): Still Present Context: Travel Severity: Moderate Pain Scale Rating Of: 4 Quality: "Pain" Associated Symptoms: denies: Nausea Recent travel outside of the [place]: No Additional History Per: Patient Past Medical History Reviewed: Historical Data, Nursing Documentation, Vital Signs Vital Signs: Last Vital Signs Temp 98.1 F 09/10/18 19:20 Pulse 109 H 09/10/18 19:20 Resp 22 09/10/18 19:20 BP 124/94 H 09/10/18 19:20 Pulse Ox 94 L 09/10/18 19:20 - Medical History PMH: Asthma, CHF, COPD, Diabetes, HTN, Hypercholesterolemia, Pneumonia, Pulmonary Embolism Denies: HIV, Chronic Kidney Disease - [facility] Procedures ASSISTANCE WITH RESPIRATORY VENTILATION, >96 HRS (02/23/16) INFLUENZA VACCINATION (03/24/13) INSERTION OF INFUSION DEV INTO SUP VENA CAVA, PERC APPROACH (03/15/17) INSERTION OF INTRALUM DEV INTO INF VENA CAVA, PERC APPROACH (10/04/16) INTRODUCE OF OTH THERAP SUBST INTO RESP TRACT, VIA OPENING (08/31/18) INTRODUCTION OF ANTI-INFLAM INTO RESP TRACT, VIA OPENING (10/24/17) INTRODUCTION OF SERUM/TOX/VACCINE INTO MUSCLE, PERC APPROACH (03/15/17) NEBULIZER THERAPY (03/23/14) TRANSFUSE NONAUT FROZEN PLASMA IN PERIPH VEIN, PERC (02/23/16) TRANSFUSE NONAUT PLASMA CRYOPRECIP IN PERIPH VEIN, PERC (02/23/16) TRANSFUSE NONAUT RED BLOOD CELLS IN PERIPH VEIN, PERC (02/23/16) VACCINATION NEC (03/24/13) Family History: States: [place], Diabetes - Social History Hx Tobacco Use: Yes (1/2 CIG/DAY) Hx Alcohol Use: No Hx Substance Use: No - Immunization History Hx Tetanus Toxoid Vaccination: No Hx Influenza Vaccination: No Hx Pneumococcal Vaccination: No Review Of Systems Constitutional: Negative for: Fever, Chills ENT: Negative for: Nose Congestion Cardiovascular: Positive for: Chest Pain. Negative for: Palpitations Respiratory: Positive for: Shortness of Breath. Negative for: Cough Gastrointestinal: Negative for: Nausea, Vomiting, Abdominal Pain, Diarrhea Neurological: Negative for: Weakness, Numbness, Headache, Dizziness Physical Exam - Physical Exam Appears: Non-toxic, No Acute Distress Skin: Warm, Other (diffuse psoriatic changes) Head: Normacephalic Eye(s): bilateral: Normal Inspection Oral Mucosa: Moist Neck: Trachea Midline, Supple Chest: Symmetrical Cardiovascular: Rhythm Regular Respiratory: Decreased Breath Sounds, No Rales, No Rhonchi, Wheezing Gastrointestinal/Abdominal: Bowel Sounds (normoactive), Soft, No Tenderness, No Distention Extremity: Pedal Edema (bilateral) Extremity: Bilateral: Normal Color And Temperature Neurological/Psych: Oriented x3, Normal Speech Gait: Steady ED Course And Treatment - Laboratory Results Result Diagrams: 09/10/18 19:52 09/10/18 19:52 ECG: Interpreted By Me, Viewed By Me ECG Rhythm: Sinus Rhythm (108), Nonspecific Changes O2 Sat by Pulse Oximetry: 94 (RA) Pulse Ox Interpretation: Normal - Radiology CXR: Interpreted by Me, Viewed By Me CXR Interpretation: Yes: Other (small left effusion). No: Infiltrates, Fracture, Pnemothorax Progress Note: ABG, EKG, labs, chest XR, and UA ordrered. Patient given nebulizer treatment, aspirin, and solumedrol. Critical Care Time - Critical Care Note Total Time (in mins): 30 Documented critical care: time excludes all time spent performing seperately billable procedures. Disposition Discussed With : Saul Castillo Comment: accepted the pt on his service and took over the care at 9:17 PM Doctor Will See Patient In The: ED Counseled Patient/Family Regarding: Studies Performed, Diagnosis - Disposition Disposition: HOSPITALIZED Disposition Time: 19:33 Condition: FAIR - POA Present On Arrival: Poor Glycemic Control - Clinical Impression Clinical Impression: Chest pain, COPD exacerbation - Scribe Statement The provider has reviewed the documentation as recorded by the Aliyah Gonzalez Provider Attestation: All medical record entries made by the Aliyah were at my direction and personall y dictated by me. I have reviewed the chart and agree that the record accurately reflects my personal performance of the history, physical exam, medical decision making, and the department course for this patient. I have also personally directed, reviewed, and agree with the discharge instructions and disposition. Decision To Admit - Pt Status Changed To: Hospital Disposition Of: Observation - . Bed Request Type: Telemetry Admitting Physician: Saul Castillo Patient Diagnosis: Chest pain, COPD exacerbation
[2018-09-10] MEDS: Albuterol-Ipratrop 3 mg / 0.5 (3 ml) UD IH SCH ×3 (19:46→19:58)
[2018-09-10] MEDS ORDERED: Albuterol-Ipratrop 3 mg / 0.5 (3 ml) UD ONE (19:52)
[2018-09-10 19:55] LABS: BASO % 0.1 % (0.0-2.0); EOS # 0.3 K/uL (0.0-0.7); EOS % 2.2 % (0.0-4.0); HEMOGLOBIN 9.2 g/dL (12.0-18.0); LYMPH # 2.3 K/uL (1.0-4.3); LYMPH % 17.1 % (20.0-40.0); MEAN CORPUSCULAR HEMOGLOBIN 22.6 pg (27.0-31.0); MEAN CORPUSCULAR HGB CONC 30.6 g/dL (33.0-37.0); MEAN PLATELET VOLUME 7.5 fL (7.2-11.7); MONO # 1.5 K/uL (0.0-0.8); MONO % 11.4 % (0.0-10.0); NEUT # 9.2 K/uL (1.8-7.0); NEUT % 69.2 % (50.0-75.0); NRBC % 0.1 % (0.0-2.0); RBC 4.06 Mil/uL (4.40-5.90); RED CELL DISTRIBUTION WIDTH 20.2 % (11.5-14.5); WHITE BLOOD COUNT 13.3 K/uL (4.8-10.8)
[2018-09-10 20:03] LABS: INR 1.2; PROTHROMBIN TIME 13.2 SECONDS (9.7-12.2)
[2018-09-10 20:06] LABS: ARTERIAL BLOOD GAS HCO3 25.1 mmol/L (21-28); ARTERIAL BLOOD GAS O2 SAT 99.2 % (95-98); ARTERIAL BLOOD GAS PCO2 39 mm/Hg (35-45); ARTERIAL BLOOD GAS PH 7.41 (7.35-7.45); ARTERIAL BLOOD GAS PO2 158 mm/Hg (80-100); ARTERIAL BLOOD GAS TCO2 25.9 mmol/L (22-28)
[2018-09-10 20:14] LABS: ALB/GLOB RATIO 1.3 (1.0-2.1); ALBUMIN 3.5 g/dL (3.5-5.0); ALT/SGPT 15 U/L (21-72); AST/SGOT 16 U/L (17-59); BLOOD UREA NITROGEN 17 mg/dL (9-20); CALCIUM 8.6 mg/dl (8.6-10.4); GFR NON-AFRICAN AMERICAN > 60
[2018-09-10 20:26] LABS: B-TYPE NATRIURETIC PEPTIDE 296 pg/mL (0-900)
[2018-09-10] MEDS ORDERED: Enoxaparin 40 mg Syringe SC STA (21:15)
[2018-09-10] MEDS ORDERED: Enoxaparin 100 mg Syringe ONE (21:25)
[2018-09-10 21:55] LABS: URINE BILIRUBIN NEGATIVE (NEGATIVE); URINE BLOOD NEGATIVE (NEGATIVE); URINE CLARITY Clear (Clear); URINE COLOR Yellow (YELLOW); URINE GLUCOSE (UA) NORMAL (Normal); URINE LEUKOCYTE ESTERASE NEG Leu/uL (Negative); URINE PROTEIN 1+ mg/dL (NEGATIVE); URINE UROBILINOGEN NORMAL mg/dL (0.2-1.0)
--- NOTE | 2018-09-10 22:29 | CP.PCM.HP ---
<Marlon Jordan - Last Filed: 09/10/18 23:38> History of Present Illness - History of Present Illness History of Present Illness: PGY-1 H&P note for Dr Castillo hospitalist service cc: "cant breath and chest hurts" Patient is a 68 year old male with past medical history of COPD, DM2, HTN, PE s/p IVC filter-2015, psoriasis that was brought to the hospital by EMS for shortness of breath and chest pain. As per patient, he was walking [place] the [place] where he lives, and began having SOB as well as sharp chest pain in left side of chest and left arm, states arm felt "paralyzed", patient states he fell and loss consciousness for 15 minutes and was brought to the ED via ambulance. Patient states feeling well the day before. Patient admits to productive cough with yellow, nonbloody sputum that started a few days ago. Patient coughs every 5 minutes. Patient has had multiple hospitalization for similar symptoms, last admission to [facility] was 08/31/2018. Patient admits to fever, chjills, headaches, sore throat, dizziness describes as a spinning feeling. Patient states continues to have chest pain, but shortness of breath has improved after IV steroid given in the ED. Patient denies abdominal pain, n/v/d/c. Denies bleeding, denies any recent travel or sick contacts, denies weight loss. PMD: None Allergies: NKDA PMHx: COPD, DM2, HTN, PE s/p IVC filter-2014, psoriasis PSHx: IVC filter - 2014 Medications: unspecified COPD meds, not compliant with metformin FamHx: denies SocHx: former smoker (30 pack years), former Etoh abuse , denies illcit drug use, lives with friend in apartment, not working currently/disabled Present on Admission - Present on Admission Any Indicators Present on Admission: No Review of Systems - Review of Systems All systems: reviewed and no additional remarkable complaints except Review of Systems: as stated in HPI Past Patient History - Infectious Disease Hx of Infectious Diseases: None - Tetanus Immunizations Tetanus Immunization: Unknown - Past Medical History & Family History Past Medical History?: Yes - Past Social History Smoking Status: Former Smoker - CARDIAC Hx Congestive Heart Failure: Yes Hx Hypercholesterolemia: Yes Hx Hypertension: Yes - PULMONARY Hx Asthma: Yes Hx Chronic Obstructive Pulmonary Disease (COPD): Yes Hx Pneumonia: Yes Hx Pulmonary Embolism: Yes - NEUROLOGICAL Hx Neurological Disorder: No - HEENT Hx HEENT Problems: No - RENAL Hx Chronic Kidney Disease: No - ENDOCRINE/METABOLIC Hx Endocrine Disorders: Yes Hx Diabetes Mellitus Type 2: Yes - HEMATOLOGICAL/ONCOLOGICAL Hx Human Immunodeficiency Virus (HIV): No - INTEGUMENTARY Hx Dermatological Problems: Yes Hx Psoriasis: Yes - MUSCULOSKELETAL/RHEUMATOLOGICAL Hx Musculoskeletal Disorders: No Hx Falls: No - GASTROINTESTINAL Hx Gastrointestinal Disorders: Yes Other/Comment: GI bleeding - GENITOURINARY/GYNECOLOGICAL Hx Genitourinary Disorders: No - PSYCHIATRIC Hx Substance Use: No - SURGICAL HISTORY Hx Surgeries: Yes Other/Comment: IVC Filter - ANESTHESIA Hx Anesthesia: Yes Hx Anesthesia Reactions: No Hx Malignant Hyperthermia: No Meds Allergies/Adverse Reactions: Allergies Allergy/AdvReac Type Severity Reaction Status Date / Time No Known Allergies Allergy Verified 09/10/18 19:21 Physical Exam - Constitutional Appears: No Acute Distress, Unkempt, Older Than Stated Age - Head Exam Head Exam: ATRAUMATIC, NORMOCEPHALIC - Eye Exam Eye Exam: EOMI - ENT Exam ENT Exam: Mucous Membranes Moist - Respiratory Exam Respiratory Exam: Wheezes (bilateral, diffuse expiratory wheezing ). absent: Accessory Muscle Use, Respiratory Distress - Cardiovascular Exam Cardiovascular Exam: REGULAR RHYTHM, +S1, +S2 - GI/Abdominal Exam GI & Abdominal Exam: Distended, Normal Bowel Sounds, Soft. absent: Tenderness Additional comments: obese abdomen - Extremities Exam Extremities exam: Positive for: full ROM. Negative for: tenderness - Neurological Exam Neurological exam: Alert, Oriented x3 - Psychiatric Exam Psychiatric exam: Normal Affect, Normal Mood - Skin Skin Exam: Dry, Warm Additional comments: multiple psoriatic lesions right arm, chest, abdomen right back b/l leg dryness Results - Vital Signs Recent Vital Signs: Last Vital Signs Temp 98.1 F 09/10/18 19:20 Pulse 106 H 09/10/18 20:31 Resp 27 H 09/10/18 20:31 BP 134/57 L 09/10/18 20:31 Pulse Ox 94 L 09/10/18 22:07 - Labs Result Diagrams: 09/10/18 19:52 09/10/18 19:52 Labs: Laboratory Results - last 24 hr 09/10/18 09/10/18 09/10/18 19:24 19:52 19:52 WBC 13.3 H RBC 4.06 L Hgb 9.2 L Hct 30.0 L MCV 74.0 L D MCH 22.6 L MCHC 30.6 L RDW 20.2 H Plt Count 320 MPV 7.5 Neut % (Auto) 69.2 Lymph % (Auto) 17.1 L [place] % (Auto) 11.4 H Eos % (Auto) 2.2 Baso % (Auto) 0.1 Neut # (Auto) 9.2 H Lymph # (Auto) 2.3 [place] # (Auto) 1.5 H Eos # (Auto) 0.3 Baso # (Auto) 0.0 PT INR APTT D-Dimer, Quantitative Puncture Site pCO2 pO2 HCO3 ABG pH ABG Total CO2 ABG O2 Saturation ABG Base Excess [place] Test ABG Potassium A-a O2 Difference Respiratory Index Glucose Lactate FiO2 Sodium 138 Potassium 3.9 Chloride 105 Carbon Dioxide 26 Anion Gap 11 BUN 17 Creatinine 1.0 Est GFR ( Amer) > 60 Est GFR (Non-Af Amer) > 60 POC Glucose (mg/dL) 68 Random Glucose 71 L D Calcium 8.6 Magnesium 1.4 L Total Bilirubin 0.5 AST 16 L D ALT 15 L D Alkaline Phosphatase 73 Troponin I < 0.0120 NT-Pro-B Natriuret Pep 296 Total Protein 6.3 Albumin 3.5 Globulin 2.8 Albumin/Globulin Ratio 1.3 Arterial Blood Potassium Urine Color Urine Clarity Urine pH Ur Specific [place] Urine Protein Urine Glucose (UA) Urine Ketones Urine Blood Urine Nitrate Urine Bilirubin Urine Urobilinogen Ur Leukocyte Esterase Urine WBC (Auto) Urine RBC (Auto) 09/10/18 09/10/18 09/10/18 19:52 20:03 21:20 WBC RBC Hgb Hct MCV MCH MCHC RDW Plt Count MPV Neut % (Auto) Lymph % (Auto) [place] % (Auto) Eos % (Auto) Baso % (Auto) Neut # (Auto) Lymph # (Auto) [place] # (Auto) Eos # (Auto) Baso # (Auto) PT 13.2 H INR 1.2 APTT 29 D-Dimer, Quantitative 401 H Puncture Site Rra pCO2 39 pO2 158 H HCO3 25.1 ABG pH 7.41 ABG Total CO2 25.9 ABG O2 Saturation 99.2 H ABG Base Excess 0.1 [place] Test Na ABG Potassium 3.5 L A-a O2 Difference 7.0 Respiratory Index 0 Glucose 95 Lactate 0.9 FiO2 30.0 Sodium 138.0 Potassium Chloride 107.0 Carbon Dioxide Anion Gap BUN Creatinine Est GFR ( Amer) Est GFR (Non-Af Amer) POC Glucose (mg/dL) Random Glucose Calcium Magnesium Total Bilirubin AST ALT Alkaline Phosphatase Troponin I NT-Pro-B Natriuret Pep Total Protein Albumin Globulin Albumin/Globulin Ratio Arterial Blood Potassium 3.5 L Urine Color Urine Clarity Urine pH Ur Specific [place] Urine Protein Urine Glucose (UA) Urine Ketones Urine Blood Urine Nitrate Urine Bilirubin Urine Urobilinogen Ur Leukocyte Esterase Urine WBC (Auto) Urine RBC (Auto) 09/10/18 21:35 WBC RBC Hgb Hct MCV MCH MCHC RDW Plt Count MPV Neut % (Auto) Lymph % (Auto) [place] % (Auto) Eos % (Auto) Baso % (Auto) Neut # (Auto) Lymph # (Auto) [place] # (Auto) Eos # (Auto) Baso # (Auto) PT INR APTT D-Dimer, Quantitative Puncture Site pCO2 pO2 HCO3 ABG pH ABG Total CO2 ABG O2 Saturation ABG Base Excess [place] Test ABG Potassium A-a O2 Difference Respiratory Index Glucose Lactate FiO2 Sodium Potassium Chloride Carbon Dioxide Anion Gap BUN Creatinine Est GFR ( Amer) Est GFR (Non-Af Amer) POC Glucose (mg/dL) Random Glucose Calcium Magnesium Total Bilirubin AST ALT Alkaline Phosphatase Troponin I NT-Pro-B Natriuret Pep Total Protein Albumin Globulin Albumin/Globulin Ratio Arterial Blood Potassium Urine Color Yellow Urine Clarity Clear Urine pH 6.0 Ur Specific [place] 1.014 Urine Protein 1+ H Urine Glucose (UA) Normal Urine Ketones Negative Urine Blood Negative Urine Nitrate Negative Urine Bilirubin Negative Urine Urobilinogen Normal Ur Leukocyte Esterase Neg Urine WBC (Auto) < 1 Urine RBC (Auto) < 1 Assessment & Plan - Assessment and Plan (Free Text) Assessment: 68 year old male with pmhx of COPD, HTN, DM2, PE s/p IVC filter and psoriasis admitted for acute COPD exarcerbbation and chest pain, r/o ACS vs PE. Plan: Acute COPD exarcerbation - CXR - pending official result - ABG - pCO2 39, pO2 158, HCo3 25.1 pH 7.41 - duonebs Q6H [place] - duonebs q2H PRN for SOB - Solumedrol 60mg IVP BID - O2 via nasal canula PRN Chest pain, R/O ACS vs PE Hx of PE s/p IVC filter - EKG - sinus tachy - trops x1 negative - BNP - 296 - d-dimer 401 - CTA angio PE protocol - f/u results - f/u trops x2, EKG x2 - f/u lipid panel, TSH, free t4 Leukocytosis r/o infectious etiology - WBC 13.1 -afebrile, lactate 0.9 - Influenza - f/u - atypicals - Legionella urine , strep pneumo ag, Mucoplasma Igg, Igm -CXR - pending official results - continue to monitor - am labs s/p fall, r/o intracranial bleed -CT head w/o contrast - f/u results - fall risk protocol DMII - not complaint with metformin, will hold due to IV contrast - HbA1c - f/u - ISS medium protocol - accuchecks ACHS - hypoglycemia protocol HTN - BP 134/57 - continue to monitor anemia, Chronic - 9.2/30.0 - continue to monitor ppx - DVT - await for CT head, if negative, lovenox 40mg SC QD - GI: not indicated - HHD, mod CHO, 2gm NA - SW referral - fall risk protocol Plan discussed with Dr Anna Jordan, PGY-1 - Date & Time Date: 09/10/18 Time: 21:00 <Saul Castillo - Last Filed: 09/11/18 06:26> Results - Vital Signs Recent Vital Signs: Last Vital Signs Temp 98.3 F 09/11/18 00:29 Pulse 100 H 09/11/18 03:50 Resp 20 09/11/18 00:29 BP 134/69 09/11/18 00:29 Pulse Ox 96 09/11/18 00:29 - Labs Result Diagrams: 09/10/18 19:52 09/10/18 19:52 Labs: Laboratory Results - last 24 hr 09/10/18 09/10/18 09/10/18 19:24 19:52 19:52 WBC 13.3 H RBC 4.06 L Hgb 9.2 L Hct 30.0 L MCV 74.0 L D MCH 22.6 L MCHC 30.6 L RDW 20.2 H Plt Count 320 MPV 7.5 Neut % (Auto) 69.2 Lymph % (Auto) 17.1 L [place] % (Auto) 11.4 H Eos % (Auto) 2.2 Baso % (Auto) 0.1 Neut # (Auto) 9.2 H Lymph # (Auto) 2.3 [place] # (Auto) 1.5 H Eos # (Auto) 0.3 Baso # (Auto) 0.0 PT INR APTT D-Dimer, Quantitative Puncture Site pCO2 pO2 HCO3 ABG pH ABG Total CO2 ABG O2 Saturation ABG Base Excess [place] Test ABG Potassium A-a O2 Difference Respiratory Index Glucose Lactate FiO2 Sodium 138 Potassium 3.9 Chloride 105 Carbon Dioxide 26 Anion Gap 11 BUN 17 Creatinine 1.0 Est GFR ( Amer) > 60 Est GFR (Non-Af Amer) > 60 POC Glucose (mg/dL) 68 Random Glucose 71 L D Calcium 8.6 Magnesium 1.4 L Total Bilirubin 0.5 AST 16 L D ALT 15 L D Alkaline Phosphatase 73 Troponin I < 0.0120 NT-Pro-B Natriuret Pep 296 Total Protein 6.3 Albumin 3.5 Globulin 2.8 Albumin/Globulin Ratio 1.3 Arterial Blood Potassium Urine Color Urine Clarity Urine pH Ur Specific [place] Urine Protein Urine Glucose (UA) Urine Ketones Urine Blood Urine Nitrate Urine Bilirubin Urine Urobilinogen Ur Leukocyte Esterase Urine WBC (Auto) Urine RBC (Auto) 09/10/18 09/10/18 09/10/18 19:52 20:03 21:20 WBC RBC Hgb Hct MCV MCH MCHC RDW Plt Count MPV Neut % (Auto) Lymph % (Auto) [place] % (Auto) Eos % (Auto) Baso % (Auto) Neut # (Auto) Lymph # (Auto) [place] # (Auto) Eos # (Auto) Baso # (Auto) PT 13.2 H INR 1.2 APTT 29 D-Dimer, Quantitative 401 H Puncture Site Rra pCO2 39 pO2 158 H HCO3 25.1 ABG pH 7.41 ABG Total CO2 25.9 ABG O2 Saturation 99.2 H ABG Base Excess 0.1 [place] Test Na ABG Potassium 3.5 L A-a O2 Difference 7.0 Respiratory Index 0 Glucose 95 Lactate 0.9 FiO2 30.0 Sodium 138.0 Potassium Chloride 107.0 Carbon Dioxide Anion Gap BUN Creatinine Est GFR ( Amer) Est GFR (Non-Af Amer) POC Glucose (mg/dL) Random Glucose Calcium Magnesium Total Bilirubin AST ALT Alkaline Phosphatase Troponin I NT-Pro-B Natriuret Pep Total Protein Albumin Globulin Albumin/Globulin Ratio Arterial Blood Potassium 3.5 L Urine Color Urine Clarity Urine pH Ur Specific [place] Urine Protein Urine Glucose (UA) Urine Ketones Urine Blood Urine Nitrate Urine Bilirubin Urine Urobilinogen Ur Leukocyte Esterase Urine WBC (Auto) Urine RBC (Auto) 09/10/18 09/11/18 21:35 02:23 WBC RBC Hgb Hct MCV MCH MCHC RDW Plt Count MPV Neut % (Auto) Lymph % (Auto) [place] % (Auto) Eos % (Auto) Baso % (Auto) Neut # (Auto) Lymph # (Auto) [place] # (Auto) Eos # (Auto) Baso # (Auto) PT INR APTT D-Dimer, Quantitative Puncture Site pCO2 pO2 HCO3 ABG pH ABG Total CO2 ABG O2 Saturation ABG Base Excess [place] Test ABG Potassium A-a O2 Difference Respiratory Index Glucose Lactate FiO2 Sodium Potassium Chloride Carbon Dioxide Anion Gap BUN Creatinine Est GFR ( Amer) Est GFR (Non-Af Amer) POC Glucose (mg/dL) Random Glucose Calcium Magnesium Total Bilirubin AST ALT Alkaline Phosphatase Troponin I < 0.0120 NT-Pro-B Natriuret Pep Total Protein Albumin Globulin Albumin/Globulin Ratio Arterial Blood Potassium Urine Color Yellow Urine Clarity Clear Urine pH 6.0 Ur Specific [place] 1.014 Urine Protein 1+ H Urine Glucose (UA) Normal Urine Ketones Negative Urine Blood Negative Urine Nitrate Negative Urine Bilirubin Negative Urine Urobilinogen Normal Ur Leukocyte Esterase Neg Urine WBC (Auto) < 1 Urine RBC (Auto) < 1 Assessment & Plan - Date & Time Date: 09/11/18 (I have seen and examined the patient. I agree with the findings and plan of care as documented by Dr. Jordan. Patient with COPD exacerbation. Oxygen, nebs, and Solumedrol. Chest pain. ROMIx3 with EKG. Aspirin. Statin. History of PE. D-dimer positive. CT angio. Follow up results. Lovenox for now. Monitor for acute changes.) Time: 06:24 Attending/Attestation - Attestation I have personally seen and examined this patient.: Yes I have fully participated in the care of the patient.: Yes I have reviewed all pertinent clinical information: Yes
[2018-09-10] MEDS ORDERED: Glucagon Recombinant 1 mg Inj IM PRN (23:02)
[2018-09-10] MEDS ORDERED: Dextrose 50% SYRINGE Inj (50 ml) IV PRN (23:02)
[2018-09-10] MEDS ORDERED: Iodixanol 320 mg/ml 150 ml Bottle IV ONE (23:07)
[2018-09-10] MEDS ORDERED: Albuterol-Ipratrop 3 mg / 0.5 (3 ml) UD INH PRN (23:34)
[2018-09-11] MEDS ORDERED: Albuterol-Ipratrop 3 mg / 0.5 (3 ml) UD INH SCH
[2018-09-11] MEDS ORDERED: Magnesium Sulfate 1 gm in D5W 1 GM/100 ML BAG IVPB ONE (00:58)
[2018-09-11] MEDS: Albuterol-Ipratrop 3 mg / 0.5 (3 ml) UD INH SCH ×4 (01:27→19:37)
[2018-09-11 07:36] LABS: BASO % 0.2 % (0.0-2.0); HEMOGLOBIN 9.2 g/dL (12.0-18.0); LYMPH % 10.8 % (20.0-40.0); MEAN CELL VOLUME 73.4 fL (80.0-94.0); MEAN CORPUSCULAR HEMOGLOBIN 24.2 pg (27.0-31.0); MEAN CORPUSCULAR HGB CONC 32.9 g/dL (33.0-37.0); MEAN PLATELET VOLUME 7.8 fL (7.2-11.7); MONO # 0.3 K/uL (0.0-0.8); MONO % 3.8 % (0.0-10.0); NEUT # 7.6 K/uL (1.8-7.0); NEUT % 85.2 % (50.0-75.0); RBC 3.8 Mil/uL (4.40-5.90); RED CELL DISTRIBUTION WIDTH 20.6 % (11.5-14.5); WHITE BLOOD COUNT 8.9 K/uL (4.8-10.8)
[2018-09-11 07:57] LABS: IRON 101 ug/dL (49-181)
[2018-09-11 08:01] LABS: ALB/GLOB RATIO 1.2 (1.0-2.1); ALBUMIN 3.4 g/dL (3.5-5.0); ALT/SGPT 13 U/L (21-72); AST/SGOT 25 U/L (17-59); BLOOD UREA NITROGEN 23 mg/dL (9-20); CALCIUM 8.5 mg/dl (8.6-10.4); GFR NON-AFRICAN AMERICAN > 60; HDL CHOLESTEROL 54 mg/dL (30-70)
[2018-09-11 08:03] LABS: LDL CHOLESTEROL 65 mg/dL (0-129)
[2018-09-11 08:07] LABS: % IRON SATURATION 32 (20-55); TOTAL IRON BINDING CAPACITY 319 ug/dL (250-450)
--- NOTE | 2018-09-11 08:07 | CP.PCM.PN ---
<Amanda Nayak - Last Filed: 09/11/18 13:17> Subjective - Date & Time of Evaluation Date of Evaluation: 09/11/18 Time of Evaluation: 08:00 - Subjective Subjective: Medicine Progress Note: Patient was seen and examined at bedside in the AM. Patient states he feels short of breath off and on. Patient has his rescue inhaler which he uses at home. Patient was recently admitted and discharged from [facility] for the same compliant. Patient currently denies chest pain, nausea, vomiting, fever, chills, diarrhea or constipation. Objective - Vital Signs/Intake and Output Vital Signs (last 24 hours): Temp Pulse Resp BP Pulse Ox 97.4 F L 104 H 20 139/70 98 09/11/18 07:00 09/11/18 07:00 09/11/18 07:00 09/11/18 07:00 09/11/18 07:00 Intake and Output: 09/11/18 09/11/18 06:59 18:59 Output Total 200 Balance -200 - Medications Medications: Current Medications Albuterol/Ipratropium (Duoneb 3 Mg/0.5 Mg (3 Ml) Ud) 3 ml INH RQ6 [place] Last Admin: 09/11/18 01:27 Dose: 3 ml Albuterol/Ipratropium (Duoneb 3 Mg/0.5 Mg (3 Ml) Ud) 3 ml INH RQ2 PRN PRN Reason: Shortness of Breath Dextrose (Dextrose 50% Inj) 0 ml IV STAT PRN; Protocol PRN Reason: Hypoglycemia Protocol Dextrose (Glutose 15) 0 gm PO ONCE PRN; Protocol PRN Reason: Hypoglycemia Protocol Enoxaparin Sodium (Lovenox) 40 mg SC DAILY [place] Glucagon (Glucagen Diagnostic Kit) 0 mg IM STAT PRN; Protocol PRN Reason: Hypoglycemia Protocol Dextrose (Dextrose 5% In Water 1000 Ml) 1,000 mls @ 0 mls/hr IV .Q0M PRN; Protocol PRN Reason: Hypoglycemia Protocol Insulin Human Regular (Novolin R) 0 unit SC ACHS [facility]; Protocol Methylprednisolone (Solu-Medrol) 60 mg IVP BID [place] - Labs Labs: 09/11/18 07:28 09/11/18 07:28 PT 13.2 SECONDS (9.7-12.2) H 09/10/18 19:52 INR 1.2 04/13/19 19:52 APTT 29 SECONDS (21-34) 09/10/18 19:52 - Constitutional Appears: No Acute Distress - Head Exam Head Exam: ATRAUMATIC, NORMAL INSPECTION - Eye Exam Eye Exam: EOMI, Normal appearance - ENT Exam ENT Exam: Mucous Membranes Moist - Respiratory Exam Respiratory Exam: Wheezes, NORMAL BREATHING PATTERN - Cardiovascular Exam Cardiovascular Exam: REGULAR RHYTHM, +S1, +S2 - GI/Abdominal Exam GI & Abdominal Exam: Soft, Normal Bowel Sounds. absent: Tenderness - Extremities Exam Extremities Exam: Normal Inspection - Neurological Exam Neurological Exam: Alert, Awake, Oriented x3 - Psychiatric Exam Psychiatric exam: Normal Affect - Skin Additional comments: salmon colored plaques - LE and UE bilaterally Assessment and Plan - Assessment and Plan (Free Text) Assessment: 68 year old male with pmhx of COPD, HTN, DM2, PE s/p IVC filter and psoriasis admitted for acute COPD exarcerbbation and chest pain, r/o ACS vs PE. Shortness of breath secondary to Acute COPD exarcerbation - Images: * CXR: Biapical pleural thickening with upper lobe granulomatous changes. Mild venous congestion. Right hilar prominence. Patchy increased consolidative changes at both bases; left greater than right. Post treatment interval follow-up may be helpful. Trace bilateral pleural effusions. Enlarged ectatic aorta. Cardiomegaly. * CTA angio PE protocol: No demonstrated pulmonary embolism or arterial dissection. Moderate centrilobar pulmonary emphysema. Chronic bronchiitis. small sliding hiatal hernia. Bilateral airspace consolidation zone in the l ungs more prominent in the left lower lobe. Subsegmental atelectasis and/or pneumonia. - ABG - pCO2 39, pO2 158, HCo3 25.1 pH 7.41 - Medications * duonebs Q6H [place] * duonebs q2H PRN for SOB * Solumedrol 60mg IVP BID - O2 via nasal canula PRN Chest pain - secondary to COPD exacerbation - EKG - sinus tachy - trops x3 negative - BNP - 296 - d-dimer 401 - CTA angio PE protocol: No demonstrated pulmonary embolism or arterial dissection. Moderate centrilobar pulmonary emphysema. Chronic bronchiitis. small sliding hiatal hernia. Bilateral airspace consolidation zone in the lungs more prominent in the left lower lobe. Subsegmental atelectasis and/or pneumonia. - TSH 0.76; free T4 1.04 - Lipid Panel: Total Cholesterol 120; LDL 65; HDL 54; Triglycerides 79 Leukocytosis - WBC 13.1 --> 8.9 - afebrile, lactate 0.9 - Legionella urine: negative - f/u Influenza; strep pneumo ag, Mucoplasma Igg, Igm - CXR: Biapical pleural thickening with upper lobe granulomatous changes. Mild venous congestion. Right hilar prominence. Patchy increased consolidative changes at both bases; left greater than right. Post treatment interval follow- up may be helpful. Trace bilateral pleural effusions. Enlarged ectatic aorta. Cardiomegaly. s/p fall - CT head w/o contrast: No acute intracranial abnormality. - fall risk protocol History of DMII - not complaint with metformin, will hold due to IV contrast - HbA1c: 7.0 - ISS medium protocol - accuchecks ACHS - hypoglycemia protocol History of HTN - Normotensive - ECHO (10/26/2017): EF 75%; left ventricle is normal in size; normal left ventricular wall thickness - continue to monitor History of Chronic anemia - 9.2/30.0 - Folate >20.0; B12 518 - continue to monitor ppx - DVT - await for CT head, if negative, lovenox 40mg SC QD - GI: not indicated - SW referral; Physical Therapy Evaluation - fall risk protocol Case discussed with Dr. Miguel Nayak PGY-2 <Omid Rivera - Last Filed: 09/11/18 15:12> Objective - Vital Signs/Intake and Output Vital Signs (last 24 hours): Temp Pulse Resp BP Pulse Ox 97.4 F L 104 H 20 139/70 98 09/11/18 07:00 09/11/18 07:00 09/11/18 07:00 09/11/18 07:00 09/11/18 07:00 Intake and Output: 09/11/18 09/11/18 06:59 18:59 Output Total 200 Balance -200 - Medications Medications: Current Medications Albuterol/Ipratropium (Duoneb 3 Mg/0.5 Mg (3 Ml) Ud) 3 ml INH RQ6 [place] Last Admin: 09/11/18 13:40 Dose: 3 ml Albuterol/Ipratropium (Duoneb 3 Mg/0.5 Mg (3 Ml) Ud) 3 ml INH RQ2 PRN PRN Reason: Shortness of Breath Dextrose (Dextrose 50% Inj) 0 ml IV STAT PRN; Protocol PRN Reason: Hypoglycemia Protocol Dextrose (Glutose 15) 0 gm PO ONCE PRN; Protocol PRN Reason: Hypoglycemia Protocol Enoxaparin Sodium (Lovenox) 40 mg SC DAILY [facility] Last Admin: 09/11/18 11:00 Dose: 40 mg Glucagon (Glucagen Diagnostic Kit) 0 mg IM STAT PRN; Protocol PRN Reason: Hypoglycemia Protocol Dextrose (Dextrose 5% In Water 1000 Ml) 1,000 mls @ 0 mls/hr IV .Q0M PRN; Protocol PRN Reason: Hypoglycemia Protocol Insulin Human Regular (Novolin R) 0 unit SC ACHS [facility]; Protocol Last Admin: 09/11/18 12:35 Dose: 3 u Lactic Acid (Lac-Hydrin 12% Lotion (225 G)) 0 gm EXT BID [facility] Methylprednisolone (Solu-Medrol) 60 mg IVP BID [facility] Last Admin: 09/11/18 11:00 Dose: 60 mg - Labs Labs: 09/11/18 07:28 09/11/18 07:28 PT 13.2 SECONDS (9.7-12.2) H 09/10/18 19:52 INR 1.2 09/10/18 19:52 APTT 29 SECONDS (21-34) 09/10/18 19:52 Attending/Attestation - Attestation I have personally seen and examined this patient.: Yes I have fully participated in the care of the patient.: Yes I have reviewed all pertinent clinical information, including history, physical exam and plan: Yes Notes (Text): seen and examined,patient has wheezing,CTA negative for PE C/O cough and sob continue solumedrol and neb s/p Fall-PT evaluation
--- NOTE | 2018-09-11 08:23 | RAD ---
Chest x-ray single frontal view HISTORY: Shortness of breath. COMPARISON: 03/01/2018 FINDINGS: Biapical pleural thickening with upper lobe granulomatous changes. Mild venous congestion. Right hilar prominence. Patchy increased consolidative changes at both bases; left greater than right. Post treatment interval follow-up may be helpful. Trace bilateral pleural effusions. Enlarged ectatic aorta. Cardiomegaly. Degenerative changes in the spine and shoulders. Impression: Biapical pleural thickening with upper lobe granulomatous changes. Mild venous congestion. Right hilar prominence. Patchy increased consolidative changes at both bases; left greater than right. Post treatment interval follow-up may be helpful. Trace bilateral pleural effusions. Enlarged ectatic aorta. Cardiomegaly.
[2018-09-11] MEDS: (Novolin R) Insulin Human Regular 100 units/ml vial SC SCH ×4 (08:30→21:47)
[2018-09-11 08:59] LABS: FOLATE > 20.0 ng/mL
--- NOTE | 2018-09-11 09:07 | CT ---
Date of service: 09/10/2018 PROCEDURE: CT HEAD WITHOUT CONTRAST. HISTORY: Head injury. COMPARISON: None available. TECHNIQUE: Axial computed tomography images were obtained through the head/brain without intravenous contrast. Radiation dose: Total exam DLP = 1304.05 mGy-cm. This CT exam was performed using one or more of the following dose reduction techniques: Automated exposure control, adjustment of the mA and/or kV according to patient size, and/or use of iterative reconstruction technique. FINDINGS: HEMORRHAGE: No intracranial hemorrhage. BRAIN: No mass effect or edema. No atrophy or chronic microvascular ischemic changes. Diffuse generalized parenchymal atrophy. Limited evaluation of the posterior fossa as well as the midbrain and jalil given prominent streak attenuation artifact. For example a questionable hypodensity in the medulla on series 4, image 10 may be related to artifact. If there is concern for a small lacunar infarct at this level, consider correlation with MRI. VENTRICLES: Unremarkable. No hydrocephalus. CALVARIUM: Unremarkable. PARANASAL SINUSES: Dense mucosal opacification of the left maxillary sinus. Mild mucosal thickening of the ethmoid air cells. MASTOID AIR CELLS: Unremarkable as visualized. No inflammatory changes. OTHER FINDINGS: None. IMPRESSION: No acute intracranial abnormality. Sinus mucosal disease as above. If symptoms persists, consider correlation with MRI. A preliminary report was generated at 1:19 a.m. on 09/11/[address] Branden Hernadez from [employer].
[2018-09-11] MEDS ORDERED: Enoxaparin 40 mg Syringe SC SCH (10:00)
[2018-09-11] MEDS: MethylPREDNISolone 40 mg Vial IVP SCH ×2 (11:00→18:35)
[2018-09-11] MEDS: Enoxaparin 40 mg Syringe SC SCH (11:00)
--- NOTE | 2018-09-11 15:22 | CT ---
CT chest pulmonary angiogram HISTORY: Elevated D-dimer. COMPARISON: None available. TECHNIQUE: CT chest pulmonary angiogram was performed utilizing contiguous axial images with the use of intravenous contrast. Subsequently, sagittal and coronal reformatted images were obtained. Sagittal and coronal MIPS reformatted images were obtained. Findings: No evidence of acute pulmonary embolism. Questionable filling defect within a subsegmental branch of the left lower lobe pulmonary artery on series 2, image 160 is likely artifact as there is a tortuous vessel at that level. Atherosclerotic calcification plaque within the aorta. No evidence of acute aortic dissection. Shotty axillary lymph nodes. Heterogeneity of the thyroid. Few shotty mediastinal lymph nodes. No significant hilar adenopathy. Coronary calcifications. No pleural or pericardial effusion. Prominent liver. Small hiatal hernia. 9 millimeter hypodensity emanating off the upper pole of the right kidney, too small to adequately characterize. Degenerative changes in the spine. Right lung: Prominent scattered emphysematous changes with large emphysematous blebs at the right lung apex extending anterolaterally along the right lung. Mild focal linear consolidative changes at the medial aspect of the right middle lobe. Mild atelectasis within the right lower lobe. Left lung: Diffuse scattered emphysematous changes with scattered emphysematous blebs. Apical pleural thickening. 2 millimeter calcified granuloma at the left lung apex. Punctate 1 millimeter calcified granuloma within the left upper lobe on series 4, image 72. Focal consolidation within the lingula. Additional more prominent consolidative changes at the left lung base. Chronic bronchitis. Small sliding hiatal hernia. Trachea thru central airways are patent. Degenerative changes in the spine. Impression: 1. No evidence of acute pulmonary embolism. Questionable filling defect within a subsegmental branch of the left lower lobe pulmonary artery on series 2, image 160 is likely artifact as there is a tortuous vessel at that level. Clinical correlation. Correlation with V/Q scan may be helpful clinically indicated. 2. Prominent scattered emphysematous changes with large emphysematous blebs at the right lung apex extending anterolaterally along the right lung. Mild focal linear consolidative changes at the medial aspect of the right middle lobe. Mild atelectasis within the right lower lobe. 3. Diffuse scattered emphysematous changes with scattered emphysematous blebs in the left lung. Apical pleural thickening. 2 millimeter calcified granuloma at the left lung apex. Punctate 1 millimeter calcified granuloma within the left upper lobe on series 4, image 72. Focal consolidation within the lingula. Additional more prominent consolidative changes at the left lung base. 4. Chronic bronchitis. 5. Small sliding hiatal hernia. Additional findings as above. A preliminary report was generated at 1:42 a.m. on 08/11/[address] Russ Steele from [employer].
[2018-09-11 16:52] LABS: MYCOPLASMA PNEUMONIAE IGM NEGATIVE (NEGATIVE)
[2018-09-11 17:28] LABS: STREP PNEMONIAE AG NEGATIVE (NEGATIVE)
[2018-09-11] MEDS: Ammonium Lactate 12% Lotion (225 g) EXT SCH (19:00)
[2018-09-12] MEDS: Albuterol-Ipratrop 3 mg / 0.5 (3 ml) UD INH SCH ×4 (01:40→19:25)
[2018-09-12 08:13] LABS: BASO # 0.1 K/uL (0.0-0.2); BASO % 0.3 % (0.0-2.0); HEMOGLOBIN 9.5 g/dL (12.0-18.0); LYMPH # 2.3 K/uL (1.0-4.3); LYMPH % 13.4 % (20.0-40.0); MEAN CELL VOLUME 73.8 fL (80.0-94.0); MEAN CORPUSCULAR HEMOGLOBIN 23.7 pg (27.0-31.0); MEAN CORPUSCULAR HGB CONC 32.2 g/dL (33.0-37.0); MEAN PLATELET VOLUME 7.8 fL (7.2-11.7); MONO # 1.9 K/uL (0.0-0.8); MONO % 11.1 % (0.0-10.0); NEUT # 12.8 K/uL (1.8-7.0); NEUT % 75.2 % (50.0-75.0); RBC 4.01 Mil/uL (4.40-5.90); RED CELL DISTRIBUTION WIDTH 20.6 % (11.5-14.5)
[2018-09-12] MEDS: (Novolin R) Insulin Human Regular 100 units/ml vial SC SCH ×4 (08:14→21:55)
[2018-09-12 08:24] LABS: ALB/GLOB RATIO 1.2 (1.0-2.1); ALBUMIN 3.7 g/dL (3.5-5.0); ALT/SGPT 16 U/L (21-72); AST/SGOT 24 U/L (17-59); BLOOD UREA NITROGEN 20 mg/dL (9-20); CALCIUM 9.2 mg/dl (8.6-10.4); GFR NON-AFRICAN AMERICAN > 60
--- NOTE | 2018-09-12 10:51 | CP.PCM.PN ---
<Randal Fajardo - Last Filed: 09/12/18 10:51> Subjective - Date & Time of Evaluation Date of Evaluation: 09/12/18 Time of Evaluation: 10:50 - Subjective Subjective: HOSPITALIST SERVICE Pt s/e at bedside, complains of SOB overnight and mild cough, pt is unable to tolerate long physical exertion. Pt feels he's improving from admission. Denies CP FC NV. Objective - Vital Signs/Intake and Output Vital Signs (last 24 hours): Temp Pulse Resp BP Pulse Ox 97.9 F 94 H 20 126/68 98 09/12/18 07:15 09/12/18 09:44 09/12/18 07:15 09/12/18 07:15 09/12/18 09:44 - Medications Medications: Current Medications Albuterol/Ipratropium (Duoneb 3 Mg/0.5 Mg (3 Ml) Ud) 3 ml INH RQ6 [place] Last Admin: 09/12/18 08:04 Dose: 3 ml Albuterol/Ipratropium (Duoneb 3 Mg/0.5 Mg (3 Ml) Ud) 3 ml INH RQ2 PRN PRN Reason: Shortness of Breath Dextrose (Dextrose 50% Inj) 0 ml IV STAT PRN; Protocol PRN Reason: Hypoglycemia Protocol Dextrose (Glutose 15) 0 gm PO ONCE PRN; Protocol PRN Reason: Hypoglycemia Protocol Enoxaparin Sodium (Lovenox) 40 mg SC DAILY [facility] Last Admin: 09/11/18 11:00 Dose: 40 mg Glucagon (Glucagen Diagnostic Kit) 0 mg IM STAT PRN; Protocol PRN Reason: Hypoglycemia Protocol Dextrose (Dextrose 5% In Water 1000 Ml) 1,000 mls @ 0 mls/hr IV .Q0M PRN; Protocol PRN Reason: Hypoglycemia Protocol Insulin Human Regular (Novolin R) 0 unit SC ACHS [facility]; Protocol Last Admin: 09/12/18 08:14 Dose: Not Given Lactic Acid (Lac-Hydrin 12% Lotion (225 G)) 0 gm EXT BID [facility] Last Admin: 09/11/18 19:00 Dose: 1 applic Methylprednisolone (Solu-Medrol) 60 mg IVP BID [facility] Last Admin: 09/11/18 18:35 Dose: 60 mg - Labs Labs: 09/12/18 07:53 04/15/19 07:53 PT 13.2 SECONDS (9.7-12.2) H 09/10/18 19:52 INR 1.2 09/10/18 19:52 APTT 29 SECONDS (21-34) 09/10/18 19:52 - Additional Findings Additional findings: - Constitutional Appears: No Acute Distress - Head Exam Head Exam: ATRAUMATIC, NORMAL INSPECTION - Eye Exam Eye Exam: EOMI, Normal appearance - ENT Exam ENT Exam: Mucous Membranes Moist - Respiratory Exam Respiratory Exam: Wheezes, NORMAL BREATHING PATTERN - Cardiovascular Exam Cardiovascular Exam: REGULAR RHYTHM, +S1, +S2 - GI/Abdominal Exam GI & Abdominal Exam: Soft, Normal Bowel Sounds. absent: Tenderness - Extremities Exam Extremities Exam: Normal Inspection - Neurological Exam Neurological Exam: Alert, Awake, Oriented x3 - Psychiatric Exam Psychiatric exam: Normal Affect - Skin Additional comments: salmon colored plaques - LE and UE bilaterally Assessment and Plan - Assessment and Plan (Free Text) Assessment: 68 year old male with pmhx of COPD, HTN, DM2, PE s/p IVC filter and psoriasis admitted for acute COPD exarcerbbation and chest pain, r/o ACS vs PE. Shortness of breath secondary to Acute COPD exarcerbation - Images: * CXR: Biapical pleural thickening with upper lobe granulomatous changes. Mild venous congestion. Right hilar prominence. Patchy increased consolidative changes at both bases; left greater than right. Post treatment interval follow-up may be helpful. Trace bilateral pleural effusions. Enlarged ectatic aorta. Cardiomegaly. * CTA angio PE protocol: No demonstrated pulmonary embolism or arterial dissection. Moderate centrilobar pulmonary emphysema. Chronic bronchiitis. small sliding hiatal hernia. Bilateral airspace consolidation zone in the lungs more prominent in the left lower lobe. Subsegmental atelectasis and/or pneumonia. - ABG - pCO2 39, pO2 158, HCo3 25.1 pH 7.41 - Medications * duonebs Q6H [place] * duonebs q2H PRN for SOB * Solumedrol 60mg IVP BID - O2 via nasal canula PRN Chest pain - secondary to COPD exacerbation - EKG - sinus tachy - trops x3 negative - BNP - 296 - d-dimer 401 - CTA angio PE protocol: No demonstrated pulmonary embolism or arterial dissection. Moderate centrilobar pulmonary emphysema. Chronic bronchiitis. small sliding hiatal hernia. Bilateral airspace consolidation zone in the lungs more prominent in the left lower lobe. Subsegmental atelectasis and/or pneumonia. - TSH 0.76; free T4 1.04 - Lipid Panel: Total Cholesterol 120; LDL 65; HDL 54; Triglycerides 79 Leukocytosis - WBC 13.1 --> 8.9-> 17 - afebrile, lactate 0.9 - Legionella urine: negative - Neg Influenza; strep pneumo ag, Mucoplasma Igg, Igm - likely 2/2 to Steroids - CXR: Biapical pleural thickening with upper lobe granulomatous changes. Mild venous congestion. Right hilar prominence. Patchy increased consolidative changes at both bases; left greater than right. Post treatment interval follow- up may be helpful. Trace bilateral pleural effusions. Enlarged ectatic aorta. Cardiomegaly. s/p fall - CT head w/o contrast: No acute intracranial abnormality. - fall risk protocol History of DMII - not complaint with metformin, will hold due to IV contrast - HbA1c: 7.0 - ISS medium protocol - accuchecks ACHS - hypoglycemia protocol History of HTN - Normotensive - ECHO (10/26/2017): EF 75%; left ventricle is normal in size; normal left ventricular wall thickness - continue to monitor History of Chronic anemia - 9.2/30.0 - Folate >20.0; B12 518 - continue to monitor ppx - DVT - await for CT head, if negative, lovenox 40mg SC QD - GI: not indicated - SW referral; Physical Therapy Evaluation - fall risk protocol Dispo: Pt likely to go home weds pending symptomatic relief, continue w/ current meds CK PGY1 Case discussed with Dr. Floyd <Jhon Floyd - Last Filed: 09/12/18 12:18> Objective - Vital Signs/Intake and Output Vital Signs (last 24 hours): Temp Pulse Resp BP Pulse Ox 97.9 F 94 H 20 126/68 98 09/12/18 07:15 09/12/18 09:44 09/12/18 07:15 09/12/18 07:15 09/12/18 09:44 - Medications Medications: Current Medications Albuterol/Ipratropium (Duoneb 3 Mg/0.5 Mg (3 Ml) Ud) 3 ml INH RQ6 [place] Last Admin: 09/12/18 08:04 Dose: 3 ml Albuterol/Ipratropium (Duoneb 3 Mg/0.5 Mg (3 Ml) Ud) 3 ml INH RQ2 PRN PRN Reason: Shortness of Breath Dextrose (Dextrose 50% Inj) 0 ml IV STAT PRN; Protocol PRN Reason: Hypoglycemia Protocol Dextrose (Glutose 15) 0 gm PO ONCE PRN; Protocol PRN Reason: Hypoglycemia Protocol Enoxaparin Sodium (Lovenox) 40 mg SC DAILY [facility] Last Admin: 09/12/18 11:21 Dose: 40 mg Glucagon (Glucagen Diagnostic Kit) 0 mg IM STAT PRN; Protocol PRN Reason: Hypoglycemia Protocol Dextrose (Dextrose 5% In Water 1000 Ml) 1,000 mls @ 0 mls/hr IV .Q0M PRN; Protocol PRN Reason: Hypoglycemia Protocol Insulin Human Regular (Novolin R) 0 unit SC ACHS [facility]; Protocol Last Admin: 09/12/18 08:14 Dose: Not Given Lactic Acid (Lac-Hydrin 12% Lotion (225 G)) 0 gm EXT BID [facility] Last Admin: 09/12/18 11:22 Dose: 1 applic Methylprednisolone (Solu-Medrol) 60 mg IVP BID [facility] Last Admin: 09/12/18 11:21 Dose: 60 mg - Labs Labs: 09/12/18 07:53 09/12/18 07:53 PT 13.2 SECONDS (9.7-12.2) H 09/10/18 19:52 INR 1.2 09/10/18 19:52 APTT 29 SECONDS (21-34) 09/10/18 19:52 Attending/Attestation - Attestation I have personally seen and examined this patient.: Yes I have fully participated in the care of the patient.: Yes I have reviewed all pertinent clinical information, including history, physical exam and plan: Yes Notes (Text): 09/12/18 12:16 Medical attending: Patient was ambulating slowly in the hallway. He reported breathing was improved from previous, however still coughing and wheezing Patient is known to hospitalist service from previous admissions. I do not have much to add other than he often goes from hospital to hospital and somehow is admitted repeatedly. Once he starts improving I explained to him he will be discharged. Jhon Floyd
[2018-09-12] MEDS: MethylPREDNISolone 40 mg Vial IVP SCH ×2 (11:21→18:15)
[2018-09-12] MEDS: Enoxaparin 40 mg Syringe SC SCH (11:21)
[2018-09-12] MEDS: Ammonium Lactate 12% Lotion (225 g) EXT SCH ×2 (11:22→18:17)
--- NOTE | 2018-09-12 15:03 | CARD ---
APPROVED REPORT Date of service: 09/11/2018 EKG Measurement Heart [id number] <Conclusion> Normal sinus rhythm Normal ECG
--- NOTE | 2018-09-12 15:03 | CARD ---
APPROVED REPORT Date of service: 09/11/2018 EKG Measurement Heart [id number] <Conclusion> Sinus tachycardia Cannot rule out Inferior infarct, age undetermined Abnormal ECG
[2018-09-13] MEDS: Albuterol-Ipratrop 3 mg / 0.5 (3 ml) UD INH SCH ×4 (01:18→19:23)
[2018-09-13 08:00] LABS: BASO % 0.2 % (0.0-2.0); EOS % 0.1 % (0.0-4.0); HEMOGLOBIN 9.4 g/dL (12.0-18.0); LYMPH # 1.4 K/uL (1.0-4.3); LYMPH % 7.6 % (20.0-40.0); MEAN CELL VOLUME 74.6 fL (80.0-94.0); MEAN CORPUSCULAR HEMOGLOBIN 23.1 pg (27.0-31.0); MEAN CORPUSCULAR HGB CONC 30.9 g/dL (33.0-37.0); MEAN PLATELET VOLUME 7.5 fL (7.2-11.7); MONO # 1.6 K/uL (0.0-0.8); MONO % 8.9 % (0.0-10.0); NEUT # 14.7 K/uL (1.8-7.0); NEUT % 83.2 % (50.0-75.0); PLATELET COUNT 298 K/uL (130-400); RBC 4.09 Mil/uL (4.40-5.90); RED CELL DISTRIBUTION WIDTH 20.8 % (11.5-14.5); WHITE BLOOD COUNT 17.7 K/uL (4.8-10.8)
[2018-09-13 08:03] VITALS: RESP 20
[2018-09-13 08:21] LABS: ALB/GLOB RATIO 1.2 (1.0-2.1); ALBUMIN 3.4 g/dL (3.5-5.0); ALT/SGPT 22 U/L (21-72); AST/SGOT 17 U/L (17-59); BLOOD UREA NITROGEN 22 mg/dL (9-20); CALCIUM 8.9 mg/dl (8.6-10.4); GFR NON-AFRICAN AMERICAN > 60
[2018-09-13 08:50] LABS: ANISOCYTOSIS MODERATE; BANDS 5 % (0-2); HYPOCHROMIC MODERATE; LYMPHOCYTE 9 % (20-40); MONOCYTE 8 % (0-10); MYELOCYTE 1 % (0-0); NEUTROPHIL 77 % (50-75); PLATELET ESTIMATE NORMAL (NORMAL); TOTAL CELLS COUNTED 100
[2018-09-13 08:53] LABS: OVALOCYTES SLIGHT; POIKILOCYTOSIS SLIGHT
[2018-09-13] MEDS: (Novolin R) Insulin Human Regular 100 units/ml vial SC SCH ×4 (08:53→21:47)
[2018-09-13] MEDS: Enoxaparin 40 mg Syringe SC SCH (10:05)
[2018-09-13] MEDS: Ammonium Lactate 12% Lotion (225 g) EXT SCH ×2 (10:05→17:34)
[2018-09-13] MEDS: MethylPREDNISolone 40 mg Vial IVP SCH ×2 (10:06→17:33)
--- NOTE | 2018-09-13 15:31 | CARD ---
APPROVED REPORT Date of service: 09/10/2018 EKG Measurement Heart [id number] <Conclusion> Sinus tachycardia Low voltage QRS Cannot rule out Anterior infarct, age undetermined Abnormal ECG
--- NOTE | 2018-09-13 15:54 | CP.PCM.PN ---
Subjective - Date & Time of Evaluation Date of Evaluation: 09/13/18 Time of Evaluation: 15:51 - Subjective Subjective: Harman Fajardo PGY1 Progress Note for Dr. Floyd Pt was examined at bedside this morning. He reports continuation of his cough, which is slightly improved. Patient continues to feel short of breath. He reports pain in the chest with coughing and deep inspiration. Patient reports vomiting twice, once overnight and once after breakfast. Vomitus was yellow. Objective - Vital Signs/Intake and Output Vital Signs (last 24 hours): Temp Pulse Resp BP Pulse Ox 97.8 F 94 H 20 138/64 100 09/13/18 07:30 09/13/18 07:30 09/13/18 07:30 09/13/18 07:30 09/13/18 07:30 Intake and Output: 09/13/18 09/13/18 06:59 18:59 Output Total 200 Balance -200 - Medications Medications: Current Medications Albuterol/Ipratropium (Duoneb 3 Mg/0.5 Mg (3 Ml) Ud) 3 ml INH RQ6 [place] Last Admin: 09/13/18 14:01 Dose: 3 ml Albuterol/Ipratropium (Duoneb 3 Mg/0.5 Mg (3 Ml) Ud) 3 ml INH RQ2 PRN PRN Reason: Shortness of Breath Budesonide (Pulmicort Respules) 0.5 mg INH RQ12 [place] Dextrose (Dextrose 50% Inj) 0 ml IV STAT PRN; Protocol PRN Reason: Hypoglycemia Protocol Dextrose (Glutose 15) 0 gm PO ONCE PRN; Protocol PRN Reason: Hypoglycemia Protocol Enoxaparin Sodium (Lovenox) 40 mg SC DAILY [facility] Last Admin: 09/13/18 10:05 Dose: 40 mg Glucagon (Glucagen Diagnostic Kit) 0 mg IM STAT PRN; Protocol PRN Reason: Hypoglycemia Protocol Dextrose (Dextrose 5% In Water 1000 Ml) 1,000 mls @ 0 mls/hr IV .Q0M PRN; Protocol PRN Reason: Hypoglycemia Protocol Insulin Human Regular (Novolin R) 0 unit SC ACHS [facility]; Protocol Last Admin: 09/13/18 13:14 Dose: 8 u Lactic Acid (Lac-Hydrin 12% Lotion (225 G)) 0 gm EXT BID [facility] Last Admin: 09/13/18 10:05 Dose: 1 applic Methylprednisolone (Solu-Medrol) 20 mg IVP BID [place] - Labs Labs: 09/13/18 07:52 09/13/18 07:52 PT 13.2 SECONDS (9.7-12.2) H 09/10/18 19:52 INR 1.2 09/10/18 19:52 APTT 29 SECONDS (21-34) 09/10/18 19:52 - Additional Findings Additional findings: - Constitutional Appears: No Acute Distress - Head Exam Head Exam: ATRAUMATIC, NORMAL INSPECTION - Eye Exam Eye Exam: EOMI, Normal appearance - ENT Exam ENT Exam: Mucous Membranes Moist - Respiratory Exam Respiratory Exam: Wheezes, Rhonchi, NORMAL BREATHING PATTERN - Cardiovascular Exam Cardiovascular Exam: REGULAR RHYTHM, +S1, +S2 - GI/Abdominal Exam GI & Abdominal Exam: Soft, Normal Bowel Sounds. absent: Tenderness - Extremities Exam Extremities Exam: Normal Inspection - Neurological Exam Neurological Exam: Alert, Awake, Oriented x3 - Psychiatric Exam Psychiatric exam: Normal Affect - Skin Additional comments: salmon colored plaques - LE and UE bilaterally Assessment and Plan - Assessment and Plan (Free Text) Assessment: 68 year old male with pmhx of COPD, HTN, DM2, PE s/p IVC filter and psoriasis admitted for acute COPD exarcerbbation and chest pain, r/o ACS vs PE. Plan: Shortness of breath secondary to Acute COPD exarcerbation - Images: * CXR: Biapical pleural thickening with upper lobe granulomatous changes. Mild venous congestion. Right hilar prominence. Patchy increased consolidative changes at both bases; left greater than right. Post treatment interval follow-up may be helpful. Trace bilateral pleural effusions. Enlarged ectatic aorta. Cardiomegaly. * CTA angio PE protocol: No demonstrated pulmonary embolism or arterial dissection. Moderate centrilobar pulmonary emphysema. Chronic bronchiitis. small sliding hiatal hernia. Bilateral airspace consolidation zone in the lungs more prominent in the left lower lobe. Subsegmental atelectasis and/or pneumonia. - ABG - pCO2 39, pO2 158, HCo3 25.1 pH 7.41 - Medications * duonebs Q6H [place] * duonebs q2H PRN for SOB * Solumedrol 20mg IVP BID * pulmicort 0.5 2 puffs BID - O2 via nasal cannula PRN Chest pain - secondary to COPD exacerbation - EKG - sinus tachy - trops x3 negative - BNP - 296 - d-dimer 401 - CTA angio PE protocol: No demonstrated pulmonary embolism or arterial dissection. Moderate centrilobar pulmonary emphysema. Chronic bronchiitis. small sliding hiatal hernia. Bilateral airspace consolidation zone in the lungs more prominent in the left lower lobe. Subsegmental atelectasis and/or pneumonia. - TSH 0.76; free T4 1.04 - Lipid Panel: Total Cholesterol 120; LDL 65; HDL 54; Triglycerides 79 Leukocytosis - WBC 13.1 --> 8.9-> 17 -->17.7 - afebrile, lactate 0.9 - Legionella urine: negative - Neg Influenza; strep pneumo ag, Mucoplasma Igg, Igm - likely 2/2 to Steroids decreased steroids today - CXR: Biapical pleural thickening with upper lobe granulomatous changes. Mild venous congestion. Right hilar prominence. Patchy increased consolidative changes at both bases; left greater than right. Post treatment interval follow- up may be helpful. Trace bilateral pleural effusions. Enlarged ectatic aorta. Cardiomegaly. s/p fall - CT head w/o contrast: No acute intracranial abnormality. - fall risk protocol History of DMII - not complaint with metformin, will hold due to IV contrast - HbA1c: 7.0 - ISS medium protocol - accuchecks ACHS - hypoglycemia protocol History of HTN - Normotensive - ECHO (10/26/2017): EF 75%; left ventricle is normal in size; normal left ventricular wall thickness - continue to monitor History of Chronic anemia - 9.2/30.0 - Folate >20.0; B12 518 - continue to monitor ppx - DVT - await for CT head, if negative, lovenox 40mg SC QD - GI: not indicated - SW referral; Physical Therapy Evaluation - fall risk protocol Dispo: Pt likely to go home weds pending symptomatic relief, continue w/ current meds Case discussed with Dr. Floyd
[2018-09-13] MEDS: Budesonide 0.5 mg/2 ml Inhal Susp UD INH SCH (19:22)
[2018-09-14] MEDS: Albuterol-Ipratrop 3 mg / 0.5 (3 ml) UD INH SCH ×3 (01:27→13:11)
[2018-09-14 07:48] LABS: BASO % 0.1 % (0.0-2.0); HEMOGLOBIN 9.7 g/dL (12.0-18.0); LYMPH # 1.9 K/uL (1.0-4.3); LYMPH % 9.8 % (20.0-40.0); MEAN CELL VOLUME 74.3 fL (80.0-94.0); MEAN CORPUSCULAR HEMOGLOBIN 23.7 pg (27.0-31.0); MEAN CORPUSCULAR HGB CONC 31.9 g/dL (33.0-37.0); MEAN PLATELET VOLUME 7.7 fL (7.2-11.7); MONO # 1.7 K/uL (0.0-0.8); NEUT # 15.8 K/uL (1.8-7.0); NEUT % 81.1 % (50.0-75.0); NRBC % 0.1 % (0.0-2.0); PLATELET COUNT 307 K/uL (130-400); RBC 4.11 Mil/uL (4.40-5.90); RED CELL DISTRIBUTION WIDTH 20.6 % (11.5-14.5); WHITE BLOOD COUNT 19.5 K/uL (4.8-10.8)
[2018-09-14 08:06] LABS: ALB/GLOB RATIO 1.3 (1.0-2.1); ALBUMIN 3.5 g/dL (3.5-5.0); ALT/SGPT 12 U/L (21-72); AST/SGOT 18 U/L (17-59); BLOOD UREA NITROGEN 24 mg/dL (9-20); GFR NON-AFRICAN AMERICAN > 60
[2018-09-14] MEDS: Budesonide 0.5 mg/2 ml Inhal Susp UD INH SCH (08:08)
[2018-09-14 08:23] VITALS: BP 130/67; PULSE 87; TEMP 98.3; O2SAT 99
[2018-09-14] MEDS: (Novolin R) Insulin Human Regular 100 units/ml vial SC SCH ×2 (08:32→13:20)
[2018-09-14 09:04] LABS: LYMPHOCYTE 10 % (20-40); MONOCYTE 3 % (0-10); NEUTROPHIL 87 % (50-75); TOTAL CELLS COUNTED 100
[2018-09-14 09:05] LABS: ANISOCYTOSIS MODERATE; PLATELET ESTIMATE NORMAL (NORMAL); POLYCHROMIC SLIGHT
[2018-09-14 09:09] LABS: SCHISTOCYTES SLIGHT
[2018-09-14 09:10] LABS: HYPOCHROMIC MODERATE; OVALOCYTES SLIGHT; TARGET CELLS SLIGHT
[2018-09-14 09:11] LABS: BURR CELLS SLIGHT; MICROCYTOSIS SLIGHT
[2018-09-14] MEDS: MethylPREDNISolone 40 mg Vial IVP SCH (10:41)
[2018-09-14] MEDS: Ammonium Lactate 12% Lotion (225 g) EXT SCH (10:41)
--- NOTE | 2018-09-14 10:56 | CP.PCM.DIS ---
<Randal Fajardo - Last Filed: 09/14/18 14:45> Provider - Provider Date of Admission: 09/12/18 13:39 Attending physician: Omid Rivera MD Time Spent in preparation of Discharge (in minutes): 45 Hospital Course - Lab Results Lab Results: Micro Results 09/10/18 19:34 Blood Blood Culture - Preliminary NO GROWTH AFTER 3 DAYS 09/10/18 19:34 Blood Blood Culture - Preliminary NO GROWTH AFTER 3 DAYS Most Recent Lab Values WBC 19.5 K/uL (4.8-10.8) H 09/14/18 07:25 RBC 4.11 Mil/uL (4.40-5.90) L 09/14/18 07:25 Hgb 9.7 g/dL (12.0-18.0) L 09/14/18 07:25 Hct 30.5 % (35.0-51.0) L 09/14/18 07:25 MCV 74.3 fL (80.0-94.0) L 09/14/18 07:25 MCH 23.7 pg (27.0-31.0) L 09/14/18 07:25 MCHC 31.9 g/dL (33.0-37.0) L 09/14/18 07:25 RDW 20.6 % (11.5-14.5) H 09/14/18 07:25 Plt Count 307 K/uL (130-400) 09/14/18 07:25 MPV 7.7 fL (7.2-11.7) 09/14/18 07:25 Neut % (Auto) 81.1 % (50.0-75.0) H 09/14/18 07:25 Lymph % (Auto) 9.8 % (20.0-40.0) L 09/14/18 07:25 [place] % (Auto) 9.0 % (0.0-10.0) 09/14/18 07:25 Eos % (Auto) 0.0 % (0.0-4.0) 09/14/18 07:25 Baso % (Auto) 0.1 % (0.0-2.0) 09/14/18 07:25 Neut # (Auto) 15.8 K/uL (1.8-7.0) H 09/14/18 07:25 Lymph # (Auto) 1.9 K/uL (1.0-4.3) 09/14/18 07:25 [place] # (Auto) 1.7 K/uL (0.0-0.8) H 09/14/18 07:25 Eos # (Auto) 0.0 K/uL (0.0-0.7) 09/14/18 07:25 Baso # (Auto) 0.0 K/uL (0.0-0.2) 09/14/18 07:25 Neutrophils % (Manual) 87 % (50-75) H 09/14/18 07:25 Band Neutrophils % 5 % (0-2) H 09/13/18 07:52 Lymphocytes % (Manual) 10 % (20-40) L 09/14/18 07:25 Monocytes % (Manual) 3 % (0-10) 09/14/18 07:25 Myelocytes % 1 % (0-0) H 09/13/18 07:52 Platelet Estimate Normal (NORMAL) 09/14/18 07:25 Polychromasia Slight 09/14/18 07:25 Hypochromasia (manual) Moderate 09/14/18 07:25 Poikilocytosis (manual Slight 09/13/18 07:52 Anisocytosis (manual) Moderate 09/14/18 07:25 Microcytosis (manual) Slight 09/14/18 07:25 Target Cells Slight 09/14/18 07:25 Ovalocytes Slight 09/14/18 07:25 [place] Cells Slight 09/14/18 07:25 Acanthocytes (Spur) Slight 09/13/18 07:52 Schistocytes Slight 09/14/18 07:25 PT 13.2 SECONDS (9.7-12.2) H 09/10/18 19:52 INR 1.2 09/10/18 19:52 APTT 29 SECONDS (21-34) 09/10/18 19:52 D-Dimer, Quantitative 401 ng/mlDDU (0-243) H 09/10/18 21:20 Puncture Site Rra 09/10/18 20:03 pCO2 39 mm/Hg (35-45) 09/10/18 20:03 pO2 158 mm/Hg (80-100) H 09/10/18 20:03 HCO3 25.1 mmol/L (21-28) 09/10/18 20:03 ABG pH 7.41 (7.35-7.45) 09/10/18 20:03 ABG Total CO2 25.9 mmol/L (22-28) 09/10/18 20:03 ABG O2 Saturation 99.2 % (95-98) H 09/10/18 20:03 ABG Base Excess 0.1 mmol/L (-2.0-3.0) 09/10/18 20:03 Hakeem Test Na 09/10/18 20:03 ABG Potassium 3.5 mmol/L (3.6-5.2) L 09/10/18 20:03 A-a O2 Difference 7.0 mm/Hg 09/10/18 20:03 Respiratory Index 0 09/10/18 20:03 Sodium 138.0 mmol/l (132-148) 09/10/18 20:03 Chloride 107.0 mmol/L (98-107) 09/10/18 20:03 Glucose 95 mg/dl (75-110) 09/10/18 20:03 Lactate 0.9 mmol/L (0.7-2.1) 09/10/18 20:03 FiO2 30.0 % 09/10/18 20:03 Sodium 135 mmol/L (132-148) 09/14/18 07:25 Potassium 3.9 mmol/L (3.6-5.2) 09/14/18 07:25 Chloride 101 mmol/L (98-107) 09/14/18 07:25 Carbon Dioxide 29 mmol/L (22-30) 09/14/18 07:25 Anion Gap 9 (10-20) L 09/14/18 07:25 BUN 24 mg/dL (9-20) H 09/14/18 07:25 Creatinine 0.8 mg/dL (0.8-1.5) 09/14/18 07:25 Est GFR ( Amer) > 60 09/14/18 07:25 Est GFR (Non-Af Amer) > 60 09/14/18 07:25 POC Glucose (mg/dL) 202 mg/dL (65-110) H 09/14/18 06:44 Random Glucose 205 mg/dL (75-110) H 09/14/18 07:25 Hemoglobin A1c 7.0 % (4.2-6.5) H 09/11/18 07:28 Calcium 9.0 mg/dl (8.6-10.4) 09/14/18 07:25 Phosphorus 3.6 mg/dL (2.5-4.5) 09/14/18 07:25 Magnesium 1.4 mg/dL (1.6-2.3) L 09/14/18 07:25 Iron 101 ug/dL (49-181) 09/11/18 07:28 TIBC 319 ug/dL (250-450) 09/11/18 07:28 % Saturation 32 (20-55) 09/11/18 07:28 Total Bilirubin 0.3 mg/dL (0.2-1.3) 09/14/18 07:25 AST 18 U/L (17-59) 09/14/18 07:25 ALT 12 U/L (21-72) L D 09/14/18 07:25 Alkaline Phosphatase 60 U/L (38-126) 09/14/18 07:25 Troponin I < 0.0120 ng/mL (0.00-0.120) 09/11/18 07:28 NT-Pro-B Natriuret Pep 296 pg/mL (0-900) 09/10/18 19:52 Total Protein 6.1 g/dL (6.3-8.3) L 09/14/18 07:25 Albumin 3.5 g/dL (3.5-5.0) 09/14/18 07:25 Globulin 2.6 gm/dL (2.2-3.9) 09/14/18 07:25 Albumin/Globulin Ratio 1.3 (1.0-2.1) 09/14/18 07:25 Triglycerides 79 mg/dL (0-149) D 09/11/18 07:28 Cholesterol 120 mg/dL (0-199) 09/11/18 07:28 LDL Cholesterol Direct 65 mg/dL (0-129) 09/11/18 07:28 HDL Cholesterol 54 mg/dL (30-70) 09/11/18 07:28 Vitamin B12 518 pg/mL (239-931) 09/11/18 07:28 Folate > 20.0 ng/mL 09/11/18 07:28 Free T4 1.04 ng/dL (0.78-2.19) 09/11/18 07:28 TSH 3rd Generation 0.76 mIU/L (0.46-4.68) 09/11/18 07:28 Arterial Blood Potassium 3.5 mmol/L (3.6-5.2) L 09/10/18 20:03 Urine Color Yellow (YELLOW) 09/10/18 21:35 Urine Clarity Clear (Clear) 09/10/18 21:35 Urine pH 6.0 (5.0-8.0) 09/10/18 21:35 Ur Specific [place] 1.014 (1.003-1.030) 09/10/18 21:35 Urine Protein 1+ mg/dL (NEGATIVE) H 09/10/18 21:35 Urine Glucose (UA) Normal mg/dL (Normal) 09/10/18 21:35 Urine Ketones Negative mg/dL (NEGATIVE) 09/10/18 21:35 Urine Blood Negative (NEGATIVE) 09/10/18 21:35 Urine Nitrate Negative (NEGATIVE) 09/10/18 21:35 Urine Bilirubin Negative (NEGATIVE) 09/10/18 21:35 Urine Urobilinogen Normal mg/dL (0.2-1.0) 09/10/18 21:35 Ur Leukocyte Esterase Neg Elizabeth/uL (Negative) 09/10/18 21:35 Urine WBC (Auto) < 1 /hpf (0-5) 09/10/18 21:35 Urine RBC (Auto) < 1 /hpf (0-3) 09/10/18 21:35 Influenza Typ A,B (EIA) Negative for flu a/b (NEGATIVE) 09/13/18 11:55 Ur L.pneumophila Ag Negative (NEGATIVE) 09/11/18 02:23 Mycoplasma pneumon IgM Negative (NEGATIVE) 09/11/18 07:28 S. pneumoniae Antigen Negative (NEGATIVE) 09/11/18 07:28 - Hospital Course Hospital Course: History of Present Illness: PGY-1 H&P note for Dr Castillo hospitalist service cc: "cant breath and chest hurts" Patient is a 68 year old male with past medical history of COPD, DM2, HTN, PE s/p IVC filter-2015, psoriasis that was brought to the hospital by EMS for shortness of breath and chest pain. As per patient, he was walking [place] the [place] lives, and began having SOB as well as sharp chest pain in left side of chest and left arm, states arm felt "paralyzed", patient states he fell and loss consciousness for 15 minutes and was brought to the ED via ambulance. Patient states feeling well the day before. Patient admits to productive cough with yellow, nonbloody sputum that started a few days ago. Patient coughs every 5 minutes. Patient has had multiple hospitalization for similar symptoms, last admission to [facility] was 08/31/2018. Patient admits to fever, chjills, headaches, sore throat, dizziness describes as a spinning feeling. Patient states continues to have chest pain, but shortness of breath has improved after IV steroid given in the ED. Patient denies abdominal pain, n/v/d/c. Denies bleeding, denies any recent travel or sick contacts, denies weight loss. PMD: None Allergies: NKDA PMHx: COPD, DM2, HTN, PE s/p IVC filter-2014, psoriasis PSHx: IVC filter - 2014 Medications: unspecified COPD meds, not compliant with metformin FamHx: denies SocHx: former smoker (30 pack years), former Etoh abuse , denies illcit drug use, lives with friend in apartment, not working currently/disabled Pt admitted for SOB and cough for 19th time this year. Pt received duonebs and pulmicort and solumedrol, improved after 3 days. dc home on albuterol and pred 20 7 days course. Discharge Exam - Head Exam Head Exam: ATRAUMATIC, NORMAL INSPECTION - Additional Findings Additional findings: - Constitutional Appears: No Acute Distress - Head Exam Head Exam: ATRAUMATIC, NORMAL INSPECTION - Eye Exam Eye Exam: EOMI, Normal appearance - ENT Exam ENT Exam: Mucous Membranes Moist - Respiratory Exam Respiratory Exam: Wheezes, Rhonchi, NORMAL BREATHING PATTERN - Cardiovascular Exam Cardiovascular Exam: REGULAR RHYTHM, +S1, +S2 - GI/Abdominal Exam GI & Abdominal Exam: Soft, Normal Bowel Sounds. absent: Tenderness - Extremities Exam Extremities Exam: Normal Inspection - Neurological Exam Neurological Exam: Alert, Awake, Oriented x3 - Psychiatric Exam Psychiatric exam: Normal Affect - Skin Additional comments: salmon colored plaques - LE and UE bilaterally Discharge Plan - Discharge Medications Prescriptions: Albuterol HFA [Ventolin HFA 90 mcg/actuation (8 g)] 2 puff INH Q4 PRN #1 inhaler PRN Reason: sob metFORMIN [glucOPHAGE] 500 mg PO BID #60 tab Prednisone [Deltasone] 20 mg PO DAILY #7 tablet - Follow Up Plan Condition: FAIR Disposition: HOME/ ROUTINE Instructions: Heart Healthy Diet, Heart Failure, Adult (DC), Chest Pain (DC), Exacerbation of COPD, Albuterol, Metformin, Prednisone Additional Instructions: Patient is to be discharged home. Please take the following medications as prescribed Albuterol HFA [Ventolin HFA 90 mcg/actuation (8 g)] 2 puff INH Q4 PRN #1 inhaler PRN Reason: sob metFORMIN [glucOPHAGE] 500 mg PO BID #60 tab Prednisone [Deltasone] 20 mg PO DAILY #7 tablet Please follow up with your PMD Dr Paul within 7 days of discharge Take care and be well [facility] PGY1 Referrals: Karrie Paul MD [Staff Provider] - <Jhon Floyd - Last Filed: 09/14/18 15:19> Provider - Provider Date of Admission: 09/12/18 13:39 Attending physician: Omid Rivera MD Hospital Course - Lab Results Lab Results: Micro Results 09/10/18 19:34 Blood Blood Culture - Preliminary NO GROWTH AFTER 3 DAYS 09/10/18 19:34 Blood Blood Culture - Preliminary NO GROWTH AFTER 3 DAYS Most Recent Lab Values WBC 19.5 K/uL (4.8-10.8) H 09/14/18 07:25 RBC 4.11 Mil/uL (4.40-5.90) L 09/14/18 07:25 Hgb 9.7 g/dL (12.0-18.0) L 09/14/18 07:25 Hct 30.5 % (35.0-51.0) L 09/14/18 07:25 MCV 74.3 fL (80.0-94.0) L 09/14/18 07:25 MCH 23.7 pg (27.0-31.0) L 09/14/18 07:25 MCHC 31.9 g/dL (33.0-37.0) L 09/14/18 07:25 RDW 20.6 % (11.5-14.5) H 09/14/18 07:25 Plt Count 307 K/uL (130-400) 09/14/18 07:25 MPV 7.7 fL (7.2-11.7) 09/14/18 07:25 Neut % (Auto) 81.1 % (50.0-75.0) H 09/14/18 07:25 Lymph % (Auto) 9.8 % (20.0-40.0) L 09/14/18 07:25 [place] % (Auto) 9.0 % (0.0-10.0) 09/14/18 07:25 Eos % (Auto) 0.0 % (0.0-4.0) 09/14/18 07:25 Baso % (Auto) 0.1 % (0.0-2.0) 09/14/18 07:25 Neut # (Auto) 15.8 K/uL (1.8-7.0) H 09/14/18 07:25 Lymph # (Auto) 1.9 K/uL (1.0-4.3) 09/14/18 07:25 [place] # (Auto) 1.7 K/uL (0.0-0.8) H 09/14/18 07:25 Eos # (Auto) 0.0 K/uL (0.0-0.7) 09/14/18 07:25 Baso # (Auto) 0.0 K/uL (0.0-0.2) 09/14/18 07:25 Neutrophils % (Manual) 87 % (50-75) H 09/14/18 07:25 Band Neutrophils % 5 % (0-2) H 09/13/18 07:52 Lymphocytes % (Manual) 10 % (20-40) L 09/14/18 07:25 Monocytes % (Manual) 3 % (0-10) 09/14/18 07:25 Myelocytes % 1 % (0-0) H 09/13/18 07:52 Platelet Estimate Normal (NORMAL) 09/14/18 07:25 Polychromasia Slight 09/14/18 07:25 Hypochromasia (manual) Moderate 09/14/18 07:25 Poikilocytosis (manual Slight 09/13/18 07:52 Anisocytosis (manual) Moderate 09/14/18 07:25 Microcytosis (manual) Slight 09/14/18 07:25 Target Cells Slight 09/14/18 07:25 Ovalocytes Slight 09/14/18 07:25 [place] Cells Slight 09/14/18 07:25 Acanthocytes (Spur) Slight 09/13/18 07:52 Schistocytes Slight 09/14/18 07:25 PT 13.2 SECONDS (9.7-12.2) H 09/10/18 19:52 INR 1.2 09/10/18 19:52 APTT 29 SECONDS (21-34) 09/10/18 19:52 D-Dimer, Quantitative 401 ng/mlDDU (0-243) H 09/10/18 21:20 Puncture Site Rra 09/10/18 20:03 pCO2 39 mm/Hg (35-45) 09/10/18 20:03 pO2 158 mm/Hg (80-100) H 09/10/18 20:03 HCO3 25.1 mmol/L (21-28) 09/10/18 20:03 ABG pH 7.41 (7.35-7.45) 09/10/18 20:03 ABG Total CO2 25.9 mmol/L (22-28) 09/10/18 20:03 ABG O2 Saturation 99.2 % (95-98) H 09/10/18 20:03 ABG Base Excess 0.1 mmol/L (-2.0-3.0) 09/10/18 20:03 [place] Test Na 09/10/18 20:03 ABG Potassium 3.5 mmol/L (3.6-5.2) L 09/10/18 20:03 A-a O2 Difference 7.0 mm/Hg 09/10/18 20:03 Respiratory Index 0 09/10/18 20:03 Sodium 138.0 mmol/l (132-148) 09/10/18 20:03 Chloride 107.0 mmol/L (98-107) 09/10/18 20:03 Glucose 95 mg/dl (75-110) 09/10/18 20:03 Lactate 0.9 mmol/L (0.7-2.1) 09/10/18 20:03 FiO2 30.0 % 09/10/18 20:03 Sodium 135 mmol/L (132-148) 09/14/18 07:25 Potassium 3.9 mmol/L (3.6-5.2) 09/14/18 07:25 Chloride 101 mmol/L (98-107) 09/14/18 07:25 Carbon Dioxide 29 mmol/L (22-30) 09/14/18 07:25 Anion Gap 9 (10-20) L 09/14/18 07:25 BUN 24 mg/dL (9-20) H 09/14/18 07:25 Creatinine 0.8 mg/dL (0.8-1.5) 09/14/18 07:25 Est GFR ( Amer) > 60 09/14/18 07:25 Est GFR (Non-Af Amer) > 60 09/14/18 07:25 POC Glucose (mg/dL) 267 mg/dL (65-110) H 09/14/18 13:16 Random Glucose 205 mg/dL (75-110) H 09/14/18 07:25 Hemoglobin A1c 7.0 % (4.2-6.5) H 09/11/18 07:28 Calcium 9.0 mg/dl (8.6-10.4) 09/14/18 07:25 Phosphorus 3.6 mg/dL (2.5-4.5) 09/14/18 07:25 Magnesium 1.4 mg/dL (1.6-2.3) L 09/14/18 07:25 Iron 101 ug/dL (49-181) 09/11/18 07:28 TIBC 319 ug/dL (250-450) 09/11/18 07:28 % Saturation 32 (20-55) 09/11/18 07:28 Total Bilirubin 0.3 mg/dL (0.2-1.3) 09/14/18 07:25 AST 18 U/L (17-59) 09/14/18 07:25 ALT 12 U/L (21-72) L D 09/14/18 07:25 Alkaline Phosphatase 60 U/L (38-126) 09/14/18 07:25 Troponin I < 0.0120 ng/mL (0.00-0.120) 09/11/18 07:28 NT-Pro-B Natriuret Pep 296 pg/mL (0-900) 09/10/18 19:52 Total Protein 6.1 g/dL (6.3-8.3) L 09/14/18 07:25 Albumin 3.5 g/dL (3.5-5.0) 09/14/18 07:25 Globulin 2.6 gm/dL (2.2-3.9) 09/14/18 07:25 Albumin/Globulin Ratio 1.3 (1.0-2.1) 09/14/18 07:25 Triglycerides 79 mg/dL (0-149) D 09/11/18 07:28 Cholesterol 120 mg/dL (0-199) 09/11/18 07:28 LDL Cholesterol Direct 65 mg/dL (0-129) 09/11/18 07:28 HDL Cholesterol 54 mg/dL (30-70) 09/11/18 07:28 Vitamin B12 518 pg/mL (239-931) 09/11/18 07:28 Folate > 20.0 ng/mL 09/11/18 07:28 Free T4 1.04 ng/dL (0.78-2.19) 09/11/18 07:28 TSH 3rd Generation 0.76 mIU/L (0.46-4.68) 09/11/18 07:28 Arterial Blood Potassium 3.5 mmol/L (3.6-5.2) L 09/10/18 20:03 Urine Color Yellow (YELLOW) 09/10/18 21:35 Urine Clarity Clear (Clear) 09/10/18 21:35 Urine pH 6.0 (5.0-8.0) 09/10/18 21:35 Ur Specific [place] 1.014 (1.003-1.030) 09/10/18 21:35 Urine Protein 1+ mg/dL (NEGATIVE) H 09/10/18 21:35 Urine Glucose (UA) Normal mg/dL (Normal) 09/10/18 21:35 Urine Ketones Negative mg/dL (NEGATIVE) 09/10/18 21:35 Urine Blood Negative (NEGATIVE) 09/10/18 21:35 Urine Nitrate Negative (NEGATIVE) 09/10/18 21:35 Urine Bilirubin Negative (NEGATIVE) 09/10/18 21:35 Urine Urobilinogen Normal mg/dL (0.2-1.0) 09/10/18 21:35 Ur Leukocyte Esterase Neg Elizabeth/uL (Negative) 09/10/18 21:35 Urine WBC (Auto) < 1 /hpf (0-5) 09/10/18 21:35 Urine RBC (Auto) < 1 /hpf (0-3) 09/10/18 21:35 Influenza Typ A,B (EIA) Negative for flu a/b (NEGATIVE) 09/13/18 11:55 Ur L.pneumophila Ag Negative (NEGATIVE) 09/11/18 02:23 Mycoplasma pneumon IgM Negative (NEGATIVE) 09/11/18 07:28 S. pneumoniae Antigen Negative (NEGATIVE) 09/11/18 07:28 Attending/Attestation - Attestation I have personally seen and examined this patient.: Yes I have fully participated in the care of the patient.: Yes I have reviewed all pertinent clinical information, including history, physical exam and plan: Yes Notes (Text): 09/14/18 15:13 Medical attending: Patient was seen and examined by me. Agree with the above note by the resident The patient has been observed by us to be walking around in the hallway without assistance (though he does have a cane I have seen him walk without it) He has been getting IV solumedrol He still has a cough with some rhonchi on exam - however I expect this given his history As mentioned previously this is a homeless individual who does have respiratory medical problems and often comes to either [facility] or to [facility] [place] Jhon Floyd
[2018-09-14] MEDS: Enoxaparin 40 mg Syringe SC SCH (11:29)
== END 2018-09-14 16:00 | disposition home or self-care (01) | DRG 140 ==
LOC: C.ER 19:19 → C.9E 21:16 → C.6T 22:17 → OBSVTOIN 09-12 13:39
PROVIDERS: ADMIT Internal Medicine; ATTEND Internal Medicine
DX: J44.1 Chronic obstructive pulmonary disease with (acute) exacerbation (principal); J18.9 Pneumonia, unspecified organism; I11.0 Hypertensive heart disease with heart failure; I50.9 Heart failure, unspecified; S06.9X1A Unspecified intracranial injury with loss of consciousness of 30 minutes or less, initial encounter; J44.0 Chronic obstructive pulmonary disease with (acute) lower respiratory infection; E11.9 Type 2 diabetes mellitus without complications; E78.00 Pure hypercholesterolemia, unspecified; L40.9 Psoriasis, unspecified; Z86.711 Personal history of pulmonary embolism; Z91.14 Patient's other noncompliance with medication regimen; K44.9 Diaphragmatic hernia without obstruction or gangrene; Z79.4 Long term (current) use of insulin; W18.30XA Fall on same level, unspecified, initial encounter; I77.819 Aortic ectasia, unspecified site